=== PATIENT | male | born 1940 | race Caucasian/White ===

== ENCOUNTER 2024-07-13 10:16 | Outpatient (CLI) | payer MEDICARE, SELFPAY ==
--- NOTE | ~2024-07-13 | XR_ITS ---
EXAMINATION: XR chest 2V DATE: 07/13/2024 10:41 INDICATION: Fever TECHNIQUE: PA and lateral views of the chest were obtained. COMPARISON: None FINDINGS: The lungs are clear with no focal airspace opacities, pulmonary edema, pleural effusion or pneumothor ax. The cardiomediastinal silhouette is normal. Mild thoracic spondylosis with bridging osteophytes a t multiple levels consistent with diffuse idiopathic skeletal hyperostosis (DISH). IMPRESSION: 1. No acute cardiopulmonary disease. Reviewed, dictated and finalized at location B. CLEANER
[2024-07-13 19:21] LABS: Basophils Absolute Auto 0.1 K/mm3 (0.0-0.1); Eosinophils Absolute Auto 0.3 K/mm3 (0-0.3); Eosinophils Percent Auto 3.5 % (0-4.4); Hematocrit 39.5 % (42.0-52.0); Hemoglobin 12.2 g/dL (14.0-18.0); Immature Granulocyte Absolute 0.02 K/mm3 (0.00-0.031); Immature Granulocyte Percent A 0.2 % (0-0.5); Lymphocytes Absolute Auto 1.38 K/mm3 (0.9-3.2); Lymphocytes Percent Auto 17.1 % (18.3-44.2); Mean Corpuscular HGB Conc 30.9 g/dl (32-36); Mean Corpuscular Volume 93.8 fl (80-100); Mean Platelet Volume 10.6 fl (7.4-10.4); Monocytes Absolute Auto 1.1 K/mm3 (0.1-0.6); Monocytes Percent Auto 13.7 % (2.6-8.5); Neutrophils Absolute Auto 5.2 K/mm3 (1.3-6.7); Neutrophils Percent Auto 64.5 % (45.5-73.1); Platelet Count Result 208 k/mm3 (150-375); Red Blood Count 4.21 M/mm3 (4.6-6.20); Red Cell Distribution Width 15.5 % (11.5-14.5); White Blood Count 8.1 K/mm3 (4.5-10.0)
[2024-07-13 19:28] LABS: Alanine Aminotransferase 13 U/L (6-50); Albumin Level 3.9 g/dL (3.5-5.1); Alkaline Phosphatase 97 U/L (38-126); Anion Gap 5 mmol/L (4-12); Aspartate Amino Transferase 30 U/L (17-59); Bilirubin,Total 0.9 mg/dL (0.2-1.3); Blood Urea Nitrogen 22 mg/dL (9-20); Carbon Dioxide 28 mmol/L (22-30); Chloride 102 mmol/L (98-107); Cholesterol 169 mg/dL (0-200); Estimated Glomerular Filt Rate 32; Glucose 262 mg/dL (65-110); HDL Direct 35 mg/dL; Potassium 4.7 mmol/L (3.4-5.0); Sodium 135 mmol/L (137-145); Triglycerides 150 mg/dL (<150)
[2024-07-13 19:39] LABS: LDL Cholesterol Direct 96 mg/dL
[2024-07-13 19:59] LABS: Prostate Specific Antigen 53.7 ng/mL (< OR = 4.0)
[2024-07-13 20:51] LABS: Creatinine Urine 130.7 mg/dL
[2024-07-13 21:46] LABS: MALB Creatinine Ratio > 872.2 mg/g (0-30); Microalbumin Urine Random > 1140.0 mg/L (0-16.7)
--- OUTSIDE RECORDS SUMMARY | 2024-07-20 02:37 | XMS_ITS | Continuity of Care Document ---
Author Organization [facility] Address [address] [facility] [address] [place] [address] Phone Care Team Providers Care Dredge Pipeman Name Role Phone Harjit BONILLA, Satinder Unavailable [...] Diagnoses Date Provider Providers [facility]ied on [facility], [address], [place], [place], [address], [place] tel:[phone] [facility] No Information 2 Harjit Rajan. [address] [facility] [address], [place], [place], [address], [place]. tel:[phone] [facility] [place] [facility], [address], [place], [place], [address], tel:[phone] [facility] Cataract evaluation (chief complaint) Type 2 diab with mild nonp rtnop with macular edema, l eyeAge-relat ed nuclear cataract, bilateralCor pipe scar, right eyeDrusen (degenerativ e) of macula, right eye 2 Harjit Rajan. [address] [facility], [facility] [address], [place], [place], [address], [place]. tel:[phone] Specialist: Shira Platt MD, [address] [facility] [address], [place], [address]. tel:[phone] ist: Kaylah Nix MD, [address] [facility], [address], [place], [address]. tel:[phone] ist: Nargis Romero NP, [address] [facility] [address], [place], [address]. tel:[phone] ist: Kaylah Nix MD, [address] [facility] [address], [place], [address]. tel:[phone] Provider: Kenyatta Oneal MD, [address] [facility]. [address], [place], [address]. tel:[phone] ng Provider: MD Agus Michelle, [address] [facility], [place], [address]. tel:[phone] Office/outpa tient Visit, [facility], [address] [facility] [address] [address], [place], [place], [address], [place] tel:[phone] [facility] Professional Diabetic eye exam (chief complaint) Type 2 diab with mild nonp rtnop with macular edema, l eyeType 2 diab with mild nonp rtnop without mclr edema, r eyeCombined forms of age-related cataract, bilateralAna tomical narrow angle May-0 6-202 2 Timothy OD Mary Jo. [address] [facility], [address], [place], [place], [address], [place]. tel:[phone] Specialist: Shira Platt MD, [address] [facility] [address], [place], [address]. tel:[phone] ist: Kaylah Nix MD, [address] [facility] [address], [place], [address]. tel:[phone] ist: Nargis Romero NP, [address] [facility] [address], [place], [address]. tel:[phone] Provider: Kenyatta Oneal MD, [address] [facility]. [address], [place], [address]. tel:[phone] ng Provider: MD Agus Michelle, 1 [facility], [place], [address]. tel:[phone] [facility], [address] [facility] [address], [place], [place], [address], [place] tel:[phone] [facility] No Information 2 Harjit Rajan. [address] [facility], [address], [place], [place], [address], [place]. tel:[phone] Specialist: Shira Platt MD, [address] [facility] [address], [place], [address]. tel:[phone] ist: Kaylah Nix MD, [address] [facility] [address], [place], [address]. tel:[phone] ist: Nargis Romero NP, [address] [facility] [address], [place], [address]. tel:[phone] Family History Family Member Type Diagnosis Age At Onset Problem Family history of Diabetes m catalinajulia Payers Payer name Insurance type Covered democrat ID Authoriza tion(s) [employer] Medicare CI [id number] Social History Type Description Quantity Date Captured [...] Nix treats his diab. Patient goes to [place] for his glasses. Functional Status Date Functional Assessmen t No Information Instructions Date Instruction Additional Infor abi Impression/Plan Impression/Plan Assessments Type Assessment Date No Information Patient Care Teams Name Effective Dates (start - stop) Status Members No Information
--- OUTSIDE RECORDS SUMMARY | 2024-07-20 02:37 | XMS_ITS | Continuity of Care Document ---
Author Organization [facility] Address [address] [place] [address] Phone Care Team Providers Care Tax Services Manager Name Role Phone Se BONILLA Meng Unavailable [...] Diagnoses Date Provider Providers Copied on Encounter [facility], [address], [place], [place], [address] , [place] tel: [phone] [facility] No Information [address] [place], [place], [address], [place]. tel:[phone] [employer], [address], [place], [place], [address] , [place] tel: [phone] [facility] No Information [address], [place], [address], [place]. [phone] [facility] [employer], [address], [place], [place], [address] , [place] tel: [phone] [facility] Rectal bleedingBlood in stoolElevated PSA [address] Se Field. [address] [place] [address], [id number], [place]. tel:[phone] Referring Provider: Emir Saez, [address] [place] [address], [address] . tel:[phone] [facility] [employer], [address], [place], [place], [address] , [place] tel: [phone] [facility] Urinary tract infectionDiabetic NeuropathyPolyneur opathy in diabetes Apr-2 4 Robert Juan. [address], [address], [place], [place], [address]. tel:[phone] Referring Provider: Emir Saez, [place], [address] . tel:[phone] [facility] [employer], [address], [place], [place], [address] , [place] tel:[phone] [facility] Diabetic Neuropathy Apr-0 4 Se Emir. [address] [place] [address] [place], [address], [place]. tel:[phone] [facility], [address], [place], [place], [address] , [place] tel: [phone] [facility] History of fall/At Risk For FallingScreening for unspecified conditionCAD, UnspecifiedDiabeti c NeuropathyOther and unspecified hyperlipidemiaBPHO besity (BMI 30.0-34.9) [address] [place] [address], [id number], [place]. tel:[phone] Referring Provider: Emir Saez [address] [place] [address], [address] . tel:[phone] [facility], Box [facility], [place], [place], [address] , [place] tel: [phone] [facility] rash (chief complaint) CAD-recent cardiac cath/stent s placed (chief complaint) Allergic dermatitisCAD (coronary artery disease)History of heart artery stent 4 Zi Natarajan. [address] [facility], [address], [place], [place], [address], [place]. tel:[phone] Referring Provider: Emir Saez, [address] [place] [address], [address] . tel:[phone] [facility], [address], [place], [place], [address] , [place] tel: [phone] [facility] BPHCAD, Unspecified 4 Berny Stevens. [address] [facility], [address], [place], [place], [address], [place]. tel:[phone] [facility], [address], [place], [place], [address] , [place] tel: [phone] [facility] Polyneuropathy in diabetesDiabetic NeuropathyOther and unspecified hyperlipidemiaChes t painHTN 3 Robert Juan. [address] [facility], [address], [place], [place], [address]. tel:[phone] Referring Provider: Emir Saez [address] [place] [address], [address] . tel:[phone] [facility], [address], [place], [place], [address] , [place] tel: [phone] [facility] Pain in joint/arthralgia pelvic region and thighHypertensionN ausea 3- 3 Zi Natarajan. [address], [address], [place], [place], [address], [place]. [phone] Referring Provider: Emirtamiko Saez, [address] [place], [address] . tel:[phone] [facility], [address], [place], [place], [address] , [place] tel: [phone] [facility] Diabetes with neurological manifestations, type II or unspecified type, not stated as uncontrolledPolyne uropathy in diabetesOther and unspecified hyperlipidemiaUnsp ecified essential hypertensionBENIGN LOCALIZED HYPERPLASIA OF PROSTATE WITHOUT URINARY OBSTRUCTIONAcute right hip painNausea & vomiting 3 Zi Natarajan. [address], [address], [place], [place], [address], [place]. tel:[phone] [facility], [address], [place], [place], [address] , [place] tel: [phone] [facility] No Information [address]. [address] [place] [address], [address], [place]. tel:[phone] [facility], [address], [place], [place], [address] , [place] tel: [phone] [facility] Diabetes with neurological manifestations, type II or unspecified type, uncontrolledPolyne uropathy in diabetesBenign essential hypertensionHYPERL IPIDEMIA NEC/NOSElevated prostate specific antigen (psa)Obesity, unspecified October- 3 Robert Yessica. [address], [address], [place], [place], [address]. tel:[phone] [facility], [address], [place], [place], [address] , [place] tel: [phone] [facility] Benign essential hypertensionBENIGN LOCALIZED HYPERPLASIA OF PROSTATE WITH URINARY OBSTRUCTIONDiabete s with neurological manifestations, type II or unspecified type, uncontrolledElevat ed prostate specific antigen (psa)Other and unspecified hyperlipidemiaPoly neuropathy in diabetes 2 No Information [employer] [facility], [address], [place], [place], [address] , [place] tel: [phone] [facility] Benign essential hypertensionBENIGN LOCALIZED HYPERPLASIA OF PROSTATE WITH URINDiverticulosis of colon (without mention of hemorrDiabetes with neurological manifestations, type IIElevated prostate specific antigen (psa)Other and unspecified hyperlipidemiaNEUR OPATHY IN DIABETES 2 No Information [facility], [address], [place], [place], [address] , [place] tel: [phone] [facility] Unspecified chest painHeadache [address], [address], [place], [place], [address]. tel:[phone] [facility], [address], [place], [place], [address] , [place] tel: [phone] [facility] BENIGN LOCALIZED HYPERPLASIA OF PROSTATE WITH URINARY OBSTRUCTIONDiverti culosis of colon (without mention of hemorrhage)Elevate d prostate specific antigen (psa) 1 No Information [facility], [address], [place], [place], [address] , [place] tel: [phone] [facility] BENIGN LOCALIZED HYPERPLASIA OF PROSTATE WITH URINARY OBSTRUCTIONElevate d prostate specific antigen (psa)Diverticulosi s of colon (without mention of hemorrhage) 1 No Information [facility], [address], [place], [place], [address] , [place] tel: [phone] [facility] BPH W/O URINARY OBS/LUTSELVTD PRSTATE SPCF ANTGNDMII NEURO UNCNTRLDNEUROPATHY IN DIABETES 1 No Information [facility], [address], [place], [place], [address] , [place] tel: [phone] [facility] HYPERLIPIDEMIA NEC/NOSBENIGN HYPERTENSION 1 Conversion Doctor. [address] [facility], [place], [address], [place]. [facility], [address], [place], [place], [address] , tel: [phone] [facility] JOINT PAIN-PELVIS 1 Conversion Doctor. [address] [place], [address], [place]. [facility], [address], [place], [place], [address] , tel: [phone] [facility] DMII WO CMP UNCNTRLD 0 Conversion Doctor. [address] [place], [address], [place]. [facility], [address], [place], [place], [address] , [place] tel: [phone] [facility] SCRN MALIG NEOP-PROSTATERECUR BILAT INGUIN HERNSCREEN MAL NEOP-RECTUMDVRTCLO COLON W/O HMRHGDMII WO CMP NT ST UNCNTR 0 No Information Family History Family Member Type Diagnosis Age At Onset Father Problem (finding) coronary arterioscleros is Father Problem (finding) diabetes melli tus in first degree relative Sister Problem (finding) diabetes melli tus in first degree relative Payers Payer name Insurance type Covered constitution party ID Authoriza tion(s) Vehcon [id number] Social History Type Description Quantity Date Captured [...] had 3 stents placed. He saw his tool and die designer when having extreme fatigue. States he previously was 'just worn out' when going from his living room to kitchen. States he now is 'feeling great . His states 'we have to keep reminding him of things not to do . He will see Dr Vera on 07/19. Functional Status Date Functional Assessmen t No Information Instructions Date Instruction Additional Infor abi Disease process Assessments Type Assessment Date No Information Patient Care Teams Name Effective Dates (start - stop) Status Members No Information
--- OUTSIDE RECORDS SUMMARY | 2024-07-20 02:37 | XMS_ITS | Clinical Summary ---
Author Organization [facility] Address [address] [place] [address] Phone Care Team Providers Care Lace Paper Machine Operator Name Role Phone Maria Esther Padgett MD Primary Care Provider Unavailable Allergies No known active allergies Medications lisinopril (PRINIVIL, ZESTRIL) 10 MG Tablet Take 1 Tablet by mouth daily. 30 Tablet 02/10/2023 Active traMADol (ULTRAM) 50 MG TabletIndicatio ns:Right flank pain Take 1 Tablet by mouth every 6 hours as needed for Moderate or more severe pain. 15 Tablet 02/10/2023 Active Social History Tobacco Use Types Packs/Day Years Used Date Smoking Tobacco: Former Cigarettes Passive Smoke Exposure: Never Smokeless Tobacco: Never Alcohol Use Standard Drinks/Week Comments Not Currently 0 (1 standard drink = 0.6 oz pur e alcohol) Sex and Gender Information Value Date Recorded Sex Assigned at Not on file Legal Sex Male 9:49 PM CDT Gender Identity Not on file Sexual Orientation Not on file Last Filed Vital Signs Vital Sign Reading Time Taken Comments Blood Pressure 175/76 02/10/2023 8:00 AM CDT Pulse 65 02/10/2023 8:00 AM CDT Temperature 35.9 ??C (96.7 ??F) 02/10/2023 3:56 AM CD T Respiratory Rate 17 02/10/2023 8:00 AM CDT Oxygen Saturation 97% 02/10/2023 8:00 AM CDT Inhaled Oxygen Concentration - - Weight 81.6 kg (180 lb) 02/10/2023 3:56 AM CDT Height 160 cm (5' 3 ) 02/10/2023 3:56 AM CDT Body Mass Index 31.89 02/10/2023 3:56 AM CDT Plan of Treatment Health Maintenance Due Date Last Done Comments Hepatitis C Virus (HCV) Screening 1940 TdaP Immunization 1940 Pneumococcal Immunization (5 0+ years) (1 of 1 - PCV) 1991 Zoster Immunization (1 of 2) 1991 Respiratory Syncytial Virus (RSV) Immunization (Adult) (1 - 1-dose 75+ series) 01/24/2016 Influenza Immunization (#1) 2024 SARS-COV-2 Immunization ( - season) 2024 Hepatitis B Immunization Aged Out No longer eligible based on patient's age to complete this topic Meningococcal Immunization (ACWY) Aged Out No longer eligible based on patient's age to complete this topic Rotavirus Immunization Aged Out No lo nger eligible based on patient's age to complete this topic Insurance MEDICARE [facility] Care Teams Lace Paper Machine Operator Relationship Specialty Start Date End Date Maria Esther Padgett MD PCP - General Family Medicine 02/10/23
--- OUTSIDE RECORDS SUMMARY | 2024-07-20 02:37 | XMS_ITS | Clinical Summary ---
Author Organization [facility] Facility Address [address] [place] [address] Care Team Providers Care Pot Holder Binder Name Role Phone Carlitos Shah MD Primary Care Provider [phone] Social History Tobacco Use Types Packs/Day Years Used Date Smoking Tobacco: Former Alcohol Use Standard Drinks/Week Comments No 0 (1 standard drink = 0.6 oz pur e alcohol) Sex and Gender Information Value Date Recorded Sex Assigned at Not on file Legal Sex Male 2:50 PM EDT Gender Identity Not on file Sexual Orientation Not on file Last Filed Vital Signs Vital Sign Reading Time Taken Comments Blood Pressure 122/64 05/18/2019 12:00 PM INSULATION CUTTER AND FORMER Pulse 70 05/18/2019 12:00 PM INSULATION CUTTER AND FORMER Temperature - - Respiratory Rate 18 05/18/2019 12:00 PM INSULATION CUTTER AND FORMER Oxygen Saturation 96% 05/18/2019 12:00 PM INSULATION CUTTER AND FORMER Inhaled Oxygen Concentration - - Weight 91.6 kg (202 lb) 05/18/2019 12:00 PM INSULATION CUTTER AND FORMER Height 160 cm (5' 3 ) 05/18/2019 12:00 PM INSULATION CUTTER AND FORMER Body Mass Index 35.78 05/18/2019 12:00 PM INSULATION CUTTER AND FORMER Plan of Treatment Health Maintenance Due Date Last Done Comments Pneumococcal Vaccine: 65+ Ye ars (1 of 2 - PCV) 1946 Diabetes: Hemoglobin A1C 11/21/2020 Diabetes: Ophthalmology Exam 11/21/2020 Diabetes: Pedal Pulse Checked 11/21/2020 Diabetes: Sensory Foot Exam 11/21/2020 Diabetes: Visual Foot Exam 11/21/2020 Influenza Vaccine (#1) 2024 Hepatitis B Vaccine Aged Out No longe r eligible based on patient's age to complete this topic Insurance [employer] ELIZABETH MCINTOSH ([id number]) UHC MEDICARE Care Teams Pot Holder Binder Relationship Specialty Start Date End Date Carlitos Shah MD [address] [place] [address] PCP - General Family Medicine 11/28/20
--- OUTSIDE RECORDS SUMMARY | 2024-07-20 02:37 | XMS_ITS | CONTINUITY OF CARE DOCUMENT ---
Author Name yann, yann Address Unknown Organization [facility] Address [address] [facility] [address] [place] [address] Phone [phone] Care Team Providers Care Cancellation Clerk Name Role Phone Chuy BONILLA, Jean Pierre Unavailable [phone] KATIA BONILLA MENG Unavailable [phone] NIKO ORR MD Unavailable PROBLEMS Condition Status Date Provider Notes CHEST PAIN-TYPE TO BE DETERMINED completed - Berenice Gay RN DIABETES MELLITUS active Berenice Gay R N CAD active Berenice Gay RN HTN ESSENTIAL active Berenice Gay RN HYPERLIPIDEMIA active Berenice Gay RN ENCOUNTERS Date Type Provider Location Encounter Diag nosis - In-person encounter Office Visit Jean Pierre Vera MD [facility] HYPERLIPIDEMIACHEST PAIN-TYPE TO BE DETERMINED - In-person encounter Office Visit Laina Merchant MD [facility] - In-person encounter Office Visit Jean Pierre Vera MD [facility] - In-person encounter Office Visit Jean Pierre Vera MD [facility] Office HYPERLIPIDEMIAHTN ESSENTIALCADDIABETES MELLITUS VITAL SIGNS Date Observation Value Provider Body Mass Index (Ratio) 35.42 kg/m2 Rosa Gay RN blood pressure, diastolic 70 mm[Hg] Kr isty Chandler blood pressure, systolic 132 mm[Hg] Kri sty Chandler blood pressure, resting No Buster ty [place] blood pressure, cuff size regular Kr isty [place] pulse rate 77 /min Jocelyn Arteaga respiratory rate E&M 17 /min Jocelyn Arteaga oxygen saturation, oximetry 98 % Jocelyn Arteaga weight E&M 200 [lb_av] Jocelyn Arteaga height E&M 63 [in_i] Jocelyn Arteaga Body Mass Index (Ratio) 35.91 kg/m2 Ashl rosaura Zavala blood pressure, diastolic 72 mm[Hg] As hlee Lucas blood pressure, systolic 150 mm[Hg] Hermann Zavala pulse rate 64 /min Angelica Zavala oxygen saturation, oximetry 96 % Angelica Zavala respiratory rate E&M 16 /min Angelica Zavala weight E&M 202 [lb_av] Angelica Zavala Body Mass Index (Ratio) 35.73 kg/m2 Shari nydia Villagomez blood pressure, diastolic, left arm 91 mm [Hg] Madison Villagomez blood pressure, systolic, left arm 159 mm [Hg] Madison Villagomez blood pressure, diastolic, right arm 82 m m[Hg] Madison Castillooney blood pressure, systolic, right arm 165 m m[Hg] Madiosn Villagomez blood pressure, diastolic 82 mm[Hg] Na willy Villagomez blood pressure, systolic 165 mm[Hg] Marina sriram Villagomez pulse rate 60 /min Madison Castillooney oxygen saturation, oximetry 97 % Madison Villagomez respiratory rate E&M 17 /min Madison Villagomez weight E&M 201 [lb_av] Madison Villagomez Body Mass Index (Ratio) 35.73 kg/m2 Rukhsana ca Fatimah blood pressure, diastolic 80 mm[Hg] Ta renay Fatimah blood pressure, systolic 130 mm[Hg] [place] ica Fatimah pulse rate 64 /min Ivon Sheridan oxygen saturation, oximetry 97 % Ivon Sheridan respiratory rate E&M 17 /min Ivon Sheridan weight E&M 201 [lb_av] Ivon Sheridan height E&M 63 [in_i] Ivon Sheridan ALLERGIES Allergy Name Onset Date Reaction Criticality Status PLAVIX causes pt to have diarrhea Low Criti cality active RESULTS Date Observation Value Provider Reference Range Interpretation Location platelet count 222 10*3/mm3 Joshua Mulligan hematocrit, blood 43.1 % Joshua Mulligan thyroid stimulating hormone, serum 1.51 u[IU]/mL Joshua Mulligan alanine aminotransferase (SGPT), serum 15 1/L Joshua Mulligan aspartate aminotransferase (SGOT), serum 15 1/L Joshua Mulligan creatinine, serum 1.21 mg/dL Joshua Mulligan potassium, serum 4.6 mmol/L Joshua Mulligan sodium, serum 138 mmol/L Joshua Mulligan HISTORY OF MEDICATION USE Medication Status Instructions Dates Provider Indications Com ments GABAPENTIN 300 MG ORAL CAPSULE active TAKE ONE TABLET BY MOUTH TWICE DAILY 8 Jocelyn Arteaga TRAMADOL HCL 50 MG ORAL TABLET active TAKE ONE TABLET BY MOUTH NEEDED 8 Jocelyn Arteaga RANITIDINE HCL 150 MG ORAL CAPSULE active take one tablet by mouth once daily 8 Jocelyn Arteaga PRIMIDONE 50 MG ORAL TABLET active take one tablet by mouth once daily 8 Jocelyn Arteaga GLIMEPIRIDE 2 MG ORAL TABLET active take one tablet by mouth once daily 8 Jocelyn Arteaga METFORMIN HCL 1500 MG ORAL TABLET (METFORMIN HCL) active take one tablet by mouth once daily 8 Jocelyn Arteaga ISOSORBIDE DINITRATE 30 MG ORAL TABLET completed 1 daily - 8 Jocelyn Arteaga PROTONIX 40 MG ORAL TABLET DELAYED RELEASE active 1 daily Berenice Gay RN EFFIENT 10 MG ORAL TABLET completed One tablet daily 9 - 8 Berenice Gay RN SIMVASTATIN 20 MG ORAL TABLET active 1 tablet in PM Breenice Gay RN LISINOPRIL 20 MG ORAL TABLET active 1 tbalet daily Berenice Gay RN ROBERTO ASPIRIN TABLET active Cande Vasquez FORTAMET 1000 MG ORAL TABLET EXTENDED RELEASE 24 HOUR active 1 tablet in AM and 1/2 tablet in pm Berenice Gay RN SOCIAL HISTORY Date Observation Value Provider physical exercise, frequency, days per week yes Jocelyn Arteaga alcohol use, average drinks per day none Jocelyn Arteaga smoking status Former smoker Jocelyn Arteaga social history reviewed E&M reviewed Laina Merchant MD social history reviewed E&M reviewed Jean Pierre Vera MD smoking history, tot al pack/year 30 Madison Castillooney social history E&M Marital Statu s: L [place] with family/friends J ob Status: Retired E thnicity: Berenice Gay RN physical exercise, frequency, days per week yes Berenice Gay RN alcohol use, average drinks per day none Berenice Gay RN social history reviewed E&M reviewed Berenice Gay RN smoking, year quit 1987 Ivon frazier smoking status former smoker Ivon chi FUNCTIONAL STATUS Date Observation Value Provider HRA, CV Assess/Plan, Angina (inactive) Management Plan continue current therapy Berenice Gay RN MENTAL STATUS Date Observation Value Provider assessment of judgme nt and insight E&M Alert and oriented to time, place and person. Mood and affect are normal. Laina Merchant MD assessment of judgme nt and insight E&M Alert and oriented to time, place and person. Mood and affect are normal. Jean Pierre Vera MD assessment of judgme nt and insight E&M Alert and oriented to time, place and person. Mood and affect are normal. Berenice Gay RN INSURANCE PROVIDERS Payer name Policy type / Coverage type [place] red libertarian ID [employer] Other [id number] ADVANCE DIRECTIVES Name Date DISCUSSED - NO DECISION MADE TREATMENT PLAN Date Name Performer Cardiology:martha Gay RN Cardiology:wc H is updated medication list for this problem includes: Roberto Aspirin Tabs (Aspirin tabs) Lisinopril 20 Mg Tabs (Lisinopril) ..... 1 tbalet daily BP today: 132/70 Prior BP: 150/72 (11/10/2013) Labs Reviewed: C reat: 1.21 (05/11/2013) Berenice Gay RN Cardiology:no angina Berenice pollard RN f/u: H is updated medication list for this problem includes: Roberto Aspirin Tabs (Aspirin tabs) Lisinopril 20 Mg Tabs (Lisinopril) ..... 1 tbalet daily Simvastatin 20 Mg Tabs (Simvastatin) ..... 1 tablet in pm Effient 10 Mg Tabs (Prasugrel hcl) ..... One tablet daily Isosorbide Dinitrate 30 Mg Tabs (Isosorbide dinitrate) ..... 1 daily BP today: 150/72 Prior BP: 165/82 (07/19/2013) N uclear Stress Findings: Small equivocal reversible defect anteroseptal region. Fixed defect inferior-inferolateral myocardium, which may be due to diaphragmatic defect. Normal SPECT MUGA, with no wall motion abnormality identified. Normal LVEF 58%. - [facility] (08/26/2000) C ardiac Cath: Single-vessel coronary artery disease involving multiple areas of lesion in the right coronary artery. The ostium and the mid segment of the right coronary artery were stented with drug-eluting stents, and the PDA was stented with a drug-eluting stent. There were no complications. Mild plaquing in the left system. Normal left ventricular function. No mitral regurgitation. Mildly elevated LVEDP of 20 mmHg, probably because of diastolic dysfunction. - (06/22/2013) C ardiac Cath Comments: Successful 3.0 x 12mm Promus Element drug-eluting stenting of the ostium and the 3.0 x12mm Xience stenting of the mid segment of the RCA, 2.5 x 8mm Xience drug-eluting stenting of the PDA. - (06/22/2013) C arotid Doppler/Duplex: Mild plaque with less than 50% stenosis of the internal carotid arteries bilaterally. Vertebral flow is antegrade bilaterally. - CNE (07/19/2013) H CT: 43.1 (05/11/2013) Platelets: 222 (05/11/2013) C reat: 1.21 (05/11/2013) Na+: 138 (05/11/2013) K+: 4.6 (05/11/2013) TSH: 1.51 (05/11/2013) Laina Merchant MD :CHOLESTEROL 132 mg/ dL T RIGLYCERIDES 95 mg/dL H DL CHOLESTEROL [L] 40 mg/dL L DL (CALCULATED) 73 mg/dL His updated medication list for this problem includes: Simvastatin 20 Mg Tabs (Simvastatin) ..... 1 tablet in pm BP today: 165/82 Prior BP: 130/80 (06/08/2013) Jean Pierre Vera MD :usually well contro lled at home His updated medication list for this problem includes: Roberto Aspirin Tabs (Aspirin tabs) Lisinopril 20 Mg Tabs (Lisinopril) ..... 1 tbalet daily O rders: E KG ([id number]-[id number]) BP today: 165/82 P rior BP: 130/80 (06/08/2013) Labs Reviewed: C reat: 1.21 (05/11/2013) Jean Pierre Vera MD :s/p pci rca in 3 di fferent areas with indira s ymptoms resolve adn doing well now Jean Pierre Vera MD :needs FLP checked Berenice wood RN :BP today: 130/80 Berenice Gay RN :concerning for timur na w ill cath Berenice Gay RN :history of PTCA to prox RCA 2000 check carotid and abd u/s Berenice Gay RN HISTORY OF PROCEDURES Procedure Date Procedure Name Provider Procedure Notes S imelda SNOMED-CT: [id number] Current Medications Documented Jean Pierre Vera MD completed EKG Jean Pierre Vera MD completed
--- OUTSIDE RECORDS SUMMARY | 2024-07-20 02:38 | XMS_ITS | Clinical Summary ---
Author Organization [facility] Address [address] [place] [address] Care Team Providers Care Distribution Field Engineer Name Role Phone Patrice Rico NP Unavailable [phone] Joselin Mcbride MD Unavailable [phone] Eryn Araya PT Unavailable Unavailabl e Allergies Active Allergy Reactions Criticality Noted Date Comments Clopidogrel Unknown 10/04/2013 diarrhea Hydrochlorothiazide Dizziness Low Reaction: lightheadedness, Iodine Rash Medium 07/07/2013 Medications pen needle, diabetic 32 gauge x 3/16 needle Use one /day for insulin pen 100 each 3 021 Active alcohol swabs pads, medicated Use before injecting insulin or doing finger sticks to clean area, 3 per day DX E11.65, Z79.4 300 each 3 021 Active cholecalciferol (VITAMIN D-3) 2000 unit capsule 1 capsule (2,000 Units total) public health veterinarian before breakfast Active lancets misc Use to test blood glucose 2 times each day DX E11.65, Z79.4 200 each 3 022 Active acetaminophen (TYLENOL) 325 mg tablet Take 2 tablets (650 mg total) by mouth every 6 (six) hours as needed for pain Active pantoprazole DR (PROTONIX) 40 mg EC tabletIndications:G astrointestinal hemorrhage, unspecified gastrointestinal hemorrhage type Take 1 tablet (40 mg total) by mouth 2 (two) times a day 30 tablet 5 Active furosemide (LASIX) 20 mg tablet Take 1 tablet (20 mg total) by mouth public health veterinarian before breakfast 30 tablet 11 024 2024 Active ticagrelor (BRILINTA) 90 mg tablet Take 1 tablet (90 mg total) by mouth 2 (two) times a day 180 tablet 3 024 2024 Active aspirin 81 mg enteric coated tablet Take 1 tablet (81 mg total) by mouth daily 30 tablet Active atorvastatin (LIPITOR) 40 mg tabletIndications:H yperlipidemia associated with type 2 diabetes mellitus (HCC) Take 1 tablet (40 mg total) by mouth daily 90 tablet 3 024 2024 Active isosorbide mononitrate ER (IMDUR) 30 mg 24 hr tablet Take 1 tablet (30 mg total) by mouth daily 90 tablet 3 024 2024 Active metoprolol tartrate (LOPRESSOR) 25 mg immediate release tablet Take 0.5 tablets (12.5 mg total) by mouth 2 (two) times a day 90 tablet 3 024 2024 Active ferrous sulfate 325 mg (65 mg of elemental iron) tabletIndications:G astrointestinal hemorrhage, unspecified gastrointestinal hemorrhage type TAKE 1 TABLET BY MOUTH EVERY OTHER DAY 45 tablet 1 Active blood-glucose meter kitIndications:Type 2 diabetes mellitus with other circulatory complication, with long-term current use of insulin ([facility]) Use to test blood glucose 2 times each day DX E11.65, Z79.4 1 kit Active blood glucose diagnostic ([employer]Touch Verio test strips) stripIndications:Ty pe 2 diabetes mellitus with other circulatory complication, with long-term current use of insulin ([facility]),Type 2 diabetes mellitus with hyperglycemia, with long-term current use of insulin ([facility]) USE TO TEST BLOOD SUGAR TWICE DAILY DIRECTED BY PHYSICIAN 200 each 3 Active lancets (OneTouch Delica Plus Lancet) 33 gauge miscIndications:Typ e 2 diabetes mellitus with hyperglycemia, with long-term current use of insulin (HCC),Type 2 diabetes mellitus with hyperglycemia, unspecified whether prison insulin use (HCC) USE TO TEST BLOOD SUGAR TWICE DAILY DIRECTED BY PHYSICIAN 100 each 3 Active glimepiride (AMARYL) 2 mg tabletIndications:T ype 2 diabetes mellitus with hyperglycemia, with long-term current use of insulin (HCC) TAKE ONE (1) TABLET BY MOUTH TWICE DAILY AT LUNCH AND DINNER 120 tablet 2 Active blood glucose diagnostic (glucose blood) strip Use to test blood glucose 2 times each day DX E11.65, Z79.4 200 each 3 022 2023 Discontinued glimepiride (AMARYL) 2 mg tabletIndications:t ype 2 diabetes mellitus TAKE 1 TABLET (2 MG TOTAL) BY MOUTH 2 (TWO) TIMES A DAY WITH LUNCH AND BEDTIME 180 tablet 024 2023 Discontinued Active Problems Problem Noted Date Diagnosed Date Coronary artery disease invo lving w[place] coronary artery of [place] heart 03/14/2024 Class 1 obesity due to exces s calories with serious comorbidity and body mass index (BMI) of 30.0 to 30.9 in adult 03/13/2024 Overview (10/31/2023): Weight loss, BMI around 30 as of 2023. Assessment & Plan (03/14/2024 5:55 AM CDT): Chronic, weight fluctuates somewhat, obesity present for more than 5 years. Currently he is on a possible trend down. We encouraged attention to his diet. Follow-up in one month. Assessment & Plan (09/08/2019 9:32 AM CDT): Healthy, low carbohydrate lifestyle and exercise for 150min/week recommended Absent pedal pulses 03/13/2024 Assessment & Plan (03/13/2024 12:08 PM CDT): New finding, uncertain significance. We ordered ABIs to determine if additional evaluation and treatment is needed. Clinically there is mildly decreased temperature in the right foot compared to the left, but no severe ischemic changes such as ulceration, gangrene or color change. CKD (chronic kidney disease) stage 4, GFR 15-29 ml/min ([facility]) 03/08/2024 Overview (03/12/2024): Progressed to stage 4 as of March 17, 2024. Assessment & Plan (03/14/2024 5:54 AM CDT): New finding in terms of stage, but chronic kidney disease has bee present for more than 5 years and relatively stable until now. We will need to monitor this situation very closely. Referral to Nephrology may be needed. We will see him back in a month with follow-up labs. Lab Results Component Value Date GLUCOSE 177 03/06/2024 CALCIUM 8.7 03/06/2024 SODIUM 138 03/06/2024 POTASSIUM 4.3 03/06/2024 CO2 22 03/06/2024 CHLORIDE 104 03/06/2024 BUNSER 28 (H) 03/06/2024 CREATININE 2.27 (H) 03/06/2024 Assessment & Plan (02/22/2024 10:30 AM CDT): Chronic, present for about two years or more, at significant risk for worsening due to recent contrast study for his cardiac catheterization and RCA stent. Apparently additional stents are planned, so there is additional anticipated risk to his kidneys in the future. We will need to monitor this condition closely. We ordered labs to be done before his next visit in three weeks. Lab Results Component Value Date GLUCOSE 161 02/17/2024 CALCIUM 8.2 (L) 02/17/2024 SODIUM 138 02/17/2024 POTASSIUM 3.4 02/17/2024 CO2 21 (L) 02/17/2024 CHLORIDE 105 02/17/2024 BUNSER 35 (H) 02/17/2024 CREATININE 2.01 (H) 02/17/2024 Assessment & Plan (11/02/2023 8:42 AM CDT): He has moderate chronic kidney disease. It is probably due to a combination of aging, diabetes and hypertension. We ordered a follow-up BMP to see if there is progression. Consider referral to Nephrology if not previously evaluated by them. Assessment & Plan (02/02/2022 1:23 PM CDT): Stable - continue BP medication - continue monitoring. Chest pain 02/15/2024 Angina pectoris 02/13/2024 Abnormality of gait due to impairment of balance 02/03/2024 Assessment & Plan (02/03/2024 5:14 PM CDT): New problem, unresolved. After his recent hospitalization for acute blood loss anemia from the GI tract, he had an unsteady gait. He has been using a cane. Exam shows mild unsteadiness and a slightly hunched posture with no ataxia. He gets on and off the exam table without assistance. He is probably somewhat deconditioned and may have complications related to diabetes. We advised physical and occupational evaluation and treatment for now. Further workup may be needed depending on response to therapy. Erosive esophagitis 01/27/2024 Assessment & Plan (02/03/2024 5:18 PM CDT): New problem, currently on Protonix 40 mg twice daily prescribed even before his recent hospitalization. Compliance might be an issue here. Continue current therapy and follow-up in one month. Adenomatous polyp of colon 01/27/2024 Assessment & Plan (02/12/2024 6:20 PM CDT): New finding, controlled. He presented to the hospital with bright red blood in his stool. He was significantly anemic. He was hospitalized and had upper and lower endoscopies. Multiple adenomatous polyps were resected from the colon. He had moderate reflux esophagitis with a linear ulcer but no stigmata of recent bleeding from the upper GI tract. Hemoglobin at the time of discharge remained rather low but adequate and stable over two days. He was placed on Protonix. We ordered a follow-up to be done today or tomorrow. Return in one month or sooner for additional testing as needed. Hematochezia 01/26/2024 Pelvic mass 08/16/2023 Overview (10/31/2023): MRI: Indeterminate round nodule in the right mesorectal fat measuring 1.6 x 1.5 cm, incompletely evaluated in the absence of intravenous contrast. Differential for this finding includes a focus of lymphadenopathy, cyst, or possible neurogenic tumor. No additional suspicious nodules in the pelvis. Assessment & Plan (11/02/2023 8:41 AM CDT): New problem, uncontrolled. During his recent hospital stay for GI bleeding, an indeterminate pelvic mass was noted. The differential diagnosis on imaging included lymphadenopathy and neurogenic tumor. Follow-up imaging at an appropriate interval appears to be appropriate. We will discuss with Radiology and make arrangements. Moderate aortic stenosis 08/16/2023 Overview (10/31/2023): Calcific, see echo report. Impaired diastolic relaxation Grade I. Ejection fraction is measured at 61 %. Assessment & Plan (11/02/2023 8:32 AM CDT): New problem, uncontrolled. He has moderate calcific aortic stenosis on echocardiogram during his July hospital admission. Aortic cusps appeared moderately calcified. Moderate aortic stenosis was reported with a peak velocity AOV of 2.7 m/sec, mean gradient of 19.0 mmHg, and calculated valve area of 1.07 cm2. Impaired diastolic relaxation was also reported which may account for some of the swelling in his legs. Previous echo several years ago was negative for aortic stenosis. Lungs are clear and oxygen saturation is normal, so I do not think he is in overt heart failure at this time, although he may benefit from a diuretic as discussed elsewhere. We will see him back in two weeks as scheduled. Acute bronchitis 08/15/2023 Anatomical narrow angle of eye 08/15/2023 Gastrointestinal hemorrhage 08/15/2023 Overview (10/31/2023): Office follow-up by CULLEN Arriaga. >>OVERVIEW FOR ANEMIA, BLOOD LOSS WRITTEN ON 10/31/2023 2:56 PM BY MARIA NEGRETE MD Hospitalized for acute GI bleed. Assessment & Plan (02/12/2024 6:26 PM CDT): Acute problem, presumed source is the lower GI, possibly hemorrhoidal or diverticular, but he also had colon polyps that were resected. Upper endoscopy showed esophagitis and a linear ulcer without bleeding. We ordered some follow-up testing to see if his hemoglobin is improving on iron therapy. Assessment & Plan (11/02/2023 8:22 AM CDT): Subacute problem, uncontrolled. He was hospitalized about three months ago with acute GI blood loss. A small esophageal ulcer was noted on EGD. He was discharged on iron but says he never took it. He was not aware of the prescription. He also appears not to be taking the PPI that was prescibed. 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 We ordered a follow-up CBC and BMP. Lab Results Component Value Date WBC 10.0 (H) 08/18/2023 HGB 8.5 (L) 08/18/2023 HCT 28.4 (L) 08/18/2023 MCV 85.5 08/18/2023 LABPLAT 252 08/18/2023 Assessment & Plan (08/29/2023 6:18 PM 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): See recent hospital details for GI bleed as outlined in HPI. No further symptoms. Labs stable upon discharge. Will refer to GI for likely need of EGD and monitoring. Continue pantoprazole as rxd. Discussed low acid diet: avoid soda, sugar substitutes, vinegar, pickles, citrus, tomatoes, coffee, and alcohol. Stay hydrated. Keep follow and repeat labs in 6 weeks. Anemia 08/12/2023 Assessment & Plan (02/03/2024 5:20 PM CDT): New problem, controlled but still moderately anemic. He is taking an iron supplement. We ordered follow-up lab testing. He has a follow-up with GI. Return here in one month. Lab Results Component Value Date WBC 9.1 01/28/2024 HGB 8.2 (L) 01/28/2024 HCT 25.1 (L) 01/28/2024 MCV 89.0 01/28/2024 LABPLAT 176 01/28/2024 Need for hepatitis C screening test 10/21/2021 Bilateral carotid artery stenosis 07/21/2019 Assessment & Plan (11/14/2020 9:37 AM CDT): Patient remains asymptomatic with his carotid artery disease. I plan to re- evaluate his afva-aa-qvrlycfz disease with carotid ultrasound. Coronary artery disease invo lving [place] heart without angina pectoris 06/05/2019 Overview (10/31/2023): >>OVERVIEW FOR S/P RIGHT CORONARY ARTERY (RCA) STENT PLACEMENT WRITTEN ON 10/31/2023 2:55 PM BY MARIA NEGRETE MD Mid and distal right coronary artery with deployment of overlapping 2.75 and 3.0 mm JASMIN. >>OVERVIEW FOR NSTEMI (NON-ST ELEVATED MYOCARDIAL INFARCTION) (CMS/HCC) (HCC) WRITTEN ON 10/31/2023 2:59 PM BY MARIA NEGRETE MD Stent in RCA, details lacking. Assessment & Plan (03/14/2024 5:57 AM CDT): Chronic, controlled with medications including aspirin 81 mg daily and ticagrelor 90 mg twice daily which unfortunately put him at risk for anemia and other possible drug side-effects, so this is an unstable situation requiring close follow up. He also takes atorvastatin 40 mg daily, metoprolol 12.5 mg twice daily, and isosorbide 30 mg daily. He denies chest pain or pressure. Continue same for now pending results of follow-up labs before his next visit in one month. Lab Results Component Value Date WBC 8.0 03/06/2024 HGB 8.1 (L) 03/06/2024 HCT 27.1 (L) 03/06/2024 MCV 96.4 03/06/2024 LABPLAT 295 03/06/2024 Assessment & Plan (02/22/2024 10:21 AM CDT): Chronic, present for about five years with recent exacerbation requiring hospitalization and intervention. He is on aspirin and ticagrelor as well as isosorbide, atorvastatin, and metoprolol. Continue same. He denies ongoing chest pain. He will keep his follow ups with cardiology. Return here in three weeks as previously scheduled. Assessment & Plan (11/02/2023 8:19 AM CDT): Chronic, stable. He was in urgent care three days ago complaining of chest pain described as achy and worse with movement. They did an EKG which showed nonspecific changes. They gave him a Medrol Dosepak, and he says the pain is much better. He does have known ischemic heart disease, but the recent pain is probably not due to his heart. We will see him back in two weeks as scheduled. Assessment & Plan (01/20/2022 5:48 PM CDT): Chronic. With stents in place and mild murmur heard on PE. 2/6 systolic murmur. Last Cards f/u 2 years ago. Will refer to Cards to establish care given history Assessment & Plan (10/21/2021 5:17 PM CDT): Chronic. With stents in place and mild murmur heard on PE. 2/6 systolic murmur. Last Cards f/u 2 years ago. Will refer to Cards to establish care given history Assessment & Plan (11/14/2020 9:38 AM CDT): Patient remains free of any symptoms to suggest angina or heart failure. He will continue with aggressive secondary risk factor modification. At this point the patient no longer needs dual anti-platelet therapy. Assessment & Plan (01/10/2020 4:19 PM CDT): Managed by Dr. Salmeron Noncompliance 10/19/2018 Assessment & Plan (10/17/2020 11:06 AM CDT): Has not followed up with Cardiology or Nephrology but states that he will. Open wound of leg, right, sequela 09/21/2018 Assessment & Plan (09/28/2018 10:46 AM CDT): Repeat cmp. Refer to wound clinic. Orders for silvadene with instruction given on how to change dressing twice daily. Chronic dermatitis 09/05/2018 Assessment & Plan (11/16/2018 8:05 PM CDT): I asked Zahra Shah to come in and assess pt as well. Discussed options. He does improve with prednisone. Will restart prednisone at 40mg and taper by 10mg every week down to 10mg . We had referred him to dermatology and he had a pending appt in November, however, they called today and cancelled it stating they do not take his insurance. We changed referral to Dr. Rabago. We were able to call their office and get an appointment for this Wednesday. Will have him f/u with Dr. Shah for chronic conditions as well Assessment & Plan (10/28/2018 1:12 PM CDT): Uses silvadene not just on ankle, but on several small lesions on hands and arms from ongoing rash, which helps. Assessment & Plan (09/13/2018 3:18 PM CDT): Improving with eucrisa and change to fragrance and dye free detergents. Pt and shared with me that they use community pay washer/ dryers that are in their apartment building. The washer didn't work correctly and the company is sending their money back to them (55cents). I'm concerned that using a community washer and dryer may be part of the problem as they may be picking up soap residue or the washer is not rinsing correctly. Also, they stated that [facility] Paid for the eucrisa but sent them a letter stating that they would not pay for it again. I'm hoping to get him in to see dermatology and referral has already been placed. Assessment & Plan (09/05/2018 12:55 PM CDT): Punch biopsy done. Will send in eucrisa. May not be affordable for patient. Refer to dermatology- Dr. Perez. Dementia without behavioral disturbance 02/10/20 18 Overview (10/31/2023): Per PERIANESTHESIA RN office note. Assessment & Plan (02/22/2024 10:27 AM CDT): Chronic, first diagnosed about five years ago, but seems pretty functional as grossly assessed in the office today. He does have a little trouble remembering details about his complicated medical regimen. He does not take any medicine for dementia or memory loss, and it remains somewhat unclear to me how this diagnosis was established. There was only one prior note from 2018 referring to this condition and stating the patient was referred to Neurology for further evaluation. However, there is no note on file from Neurology, nor do I find any psychological testing. We will consider additional evaluation as needed when we see him back in three weeks. Assessment & Plan (02/09/2018 10:53 AM CDT): Psychological condition is newly identified. referral to neurology for further evaluation Psychological condition will be reassessed at the next regular appointment. Appears to have started after some kind of incident where he had fallen or had difficulty getting out of bed per in 12/2016, and was confused at home in 12/2016 and then was admitted to hospital for weakness. I do not see a CT head done since 2014 which did show changes at that time. Will refer to neurology for further workup. Tremor 11/25/2017 Assessment & Plan (01/20/2022 5:52 PM CDT): Chronic. Likely essential tremor. Records state tremor was originally treated with Primidone in the past. Patient doesn't recall medication. Will restart and refer to Neurology for additional eval/treament. Assessment & Plan (11/26/2017 4:42 PM CDT): Pt states he has tremor that he was originally given primidone for. Tremor is worsening and not always controlled. Will refer to neurology. Pulmonary nodule 11/25/2017 Assessment & Plan (11/26/2017 4:45 PM CDT): He had a CT scan 05/2017 that showed a left lung pulmonary nodule. 6-12 month follow up was recommended if he was at high risk. He does have a smoking history. He is also complaining of ongoing pain in his left lower rib area. Will repeat CT chest WO contract. Other chest pain 11/18/2017 Assessment & Plan (11/18/2017 10:15 AM CDT): Chest pain on left side when sitting radiates from mid chest under breast and around. Hx of stent placement in 2012. 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 He [address] Dr[address] Vera at that time. EKG in office. He also mentioned hx of left rib fracture about a year ago. EKG shows NSR, flat T in AVL. Will refer back to cardiology Diverticulosis of sigmoid colon 07/22/2015 Overview (10/02/2016): Diverticulosis of sigmoid Elevated prostate specific antigen (PSA) 014 Overview (10/02/2016): Elevated PSA Assessment & Plan (03/14/2024 6:02 AM CDT): Chronic, present for more than 10 years, uncontrolled with progression over time. Prostate cancer is suspected based on PSA level and recent imaging findings. We referred him to Medical and Radiation Oncology and Urology. He denies trouble urinating but does have frequency from his diuretic use, furosemide 20 mg daily. Lab Results Component Value Date PSA 59.90 (H) 11/01/2023 PSA 31.46 (H) 10/17/2020 PSA 17.82 (H) 09/27/2018 CT 01/26/2024: Nodule in the right pelvis measures 19 x 16 mm, slightly enlarged from 15 x 14 mm on the prior (CT). PET-CT correlation could be considered. Assessment & Plan (02/22/2024 10:28 AM CDT): Chronic, uncontrolled, first noted more than five years ago. We suspect prostate cancer but he never went to see the urologist. He is now on blood thinners for a recent cardiac intervention so any biopsy will have to be delayed, but we could probably get some imaging if appropriate. He denies trouble urinating or blood in the urine. We encouraged him to follow-up with Urology for this condition. Return in three weeks as scheduled. Lab Results Component Value Date PSA 59.90 (H) 11/01/2023 PSA 31.46 (H) 10/17/2020 PSA 17.82 (H) 09/27/2018 Assessment & Plan (02/03/2024 5:17 PM CDT): Chronic, suspect prostate cancer. We reminded the patient that he should follow- up with urology. His former urologist left town so we will arrange for consultation with current providers at [facility]. Assessment & Plan (10/10/2018 3:21 PM CDT): Discussed patient's elevated PSA. Patient states he was scared of possible cancer and did not want to go see a urologist in the past. He states he ran instead of seeing the doctor. I talked him about the need to have this checked out for diagnosis. Patient states he is agreeable to see Urology. Referral had already been placed. Call placed to Urology and they will call him to schedule appointment Assessment & Plan (09/28/2018 10:47 AM CDT): Increased PSA last year. It appears his previous MD tried to refer him to urology in 2017 and he never went. I tried to refer him to urology in 09/2017 and referral never occurred. We will recheck his PSA Hyperlipidemia associated with type 2 diabetes gina leiva 03/29/2014 Overview (10/02/2016): Hyperlipidemia Assessment & Plan (03/14/2024 6:02 AM CDT): Chronic, present for more than five years, controlled on atorvastatin 40 mg daily except for HDL which is below the target of >40. We encouraged him to stay active which may help bring up the HDL. We will monitor lipids periodically. Lab Results Component Value Date CHOL 121 10/28/2021 CHOL 105 10/17/2020 CHOL 107 12/25/2019 Lab Results Component Value Date HDL 32 (L) 10/28/2021 HDL 31 (L) 10/17/2020 HDL 32 (L) 12/25/2019 Lab Results Component Value Date LDLCALC 63 10/28/2021 LDLCALC 47 10/17/2020 LDLCALC 105 06/04/2019 LDL 57 12/25/2019 LDL 91 05/10/2018 LDL 68 08/04/2016 Lab Results Component Value Date TRIG 132 10/28/2021 TRIG 133 10/17/2020 TRIG 93 12/25/2019 Lab Results Component Value Date ALT 11 02/13/2024 AST 12 02/13/2024 ALKPHOS 77 02/13/2024 BILITOT 0.2 02/13/2024 Assessment & Plan (02/22/2024 10:29 AM CDT): Chronic, present for more than five years, currently controlled on atorvastatin 40 mg daily, except for a low HDL which is not at goal. Continue current therapy, as there is no good pharmacologic methods her raising HDL. We did encourage him to stay active. Lab Results Component Value Date CHOL 121 10/28/2021 CHOL 105 10/17/2020 CHOL 107 12/25/2019 Lab Results Component Value Date HDL 32 (L) 10/28/2021 HDL 31 (L) 10/17/2020 HDL 32 (L) 12/25/2019 Lab Results Component Value Date LDLCALC 63 10/28/2021 LDLCALC 47 10/17/2020 LDLCALC 105 06/04/2019 LDL 57 12/25/2019 LDL 91 05/10/2018 LDL 68 08/04/2016 Lab Results Component Value Date TRIG 132 10/28/2021 TRIG 133 10/17/2020 TRIG 93 12/25/2019 Assessment & Plan (11/02/2023 8:23 AM CDT): Chronic, uncontrolled. Ideally he should be taking a statin medication, but it is not on his current list. We will review the record and address at his annual coming up in about 2 weeks. Assessment & Plan (11/14/2020 9:39 AM CDT): Patient's LDL cholesterol from September was perfect at 47 mg/dL. No changes are required. Assessment & Plan (10/17/2020 11:16 AM CDT): Due for lab work. Given orders for lab work. Continue current medications. Stable. Assessment & Plan (08/16/2018 9:33 AM 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): Lipid abnormalities are improving with treatment. Pharmacotherapy as ordered. Lipids will be reassessed in 6 months. Assessment & Plan (05/16/2018 8:47 PM 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): Lipid abnormalities are improving with treatment. Pharmacotherapy as ordered. Lipids will be reassessed in 6 months. Assessment & Plan (02/09/2018 10:44 AM CDT): Decrease zocor to 10mg. Recheck lipids on 3 months Assessment & Plan (10/22/2017 5:39 PM CDT): Lipid abnormalities are unchanged. Pharmacotherapy as ordered. Lipids will be reassessed in 6 months. 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 Previously blood pressure is were ? too high for physical therapy? , but he is doing better now, so he might be able to re-engage with some rehab. Assessment & Plan (02/21/2024 11:56 AM CDT): Chronic, present for 10 or more years, currently controlled on multiple medications listed elsewhere. Follow-up in three weeks as scheduled. Assessment & Plan (11/02/2023 8:24 AM CDT): Chronic, uncontrolled, not at goal. Systolic blood pressure is mildly elevated in the office today. He takes amlodipine 5 mg daily. We may need to adjust his medications. In particular, he may benefit from a diuretic given the 2+ pitting edema but we are checking a BMP first to better guide therapy. Follow-up in two weeks as scheduled for annual. Assessment & Plan (08/29/2023 6:16 PM 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): BP stable in office today on current therapy. 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 No acute findings on exam. Recent hospital discharge labs unremarkable. Repeat ECHO showed EF 60% with moderate and grade 1 DD. Keep stress test on 09/02/23 and follow with cardiology on 09/24/23. Continue current regimen and low salt diet. Assessment & Plan (10/17/2020 11:05 AM CDT): Uncontrolled in office today. It was better when he was seen by endocrinology on the 30 of September. I added diltiazem 120 mg once daily. Patient is overdue for follow-up with Cardiology and Nephrology. We made sure that he had both phone numbers to call and make follow-up appointments with. He canceled both of those appointments last year due to COVID. Will call patient next week for recheck of hypertension and blood pressure recheck. Has in-person follow-up visit in November for Medicare well check Assessment & Plan (09/30/2020 9:58 AM CDT): CKD with LE edema - patient asked to see his PCP or kidney specialist for evaluation Assessment & Plan (09/13/2018 3:14 PM CDT): Hypertension is worsening. I had added toprol xl at last office visit. Blood pressure is still elevated today. He has appointment with nephrology . Will also refer to cardiology for help in blood pressure management. Assessment & Plan (08/16/2018 9:32 AM 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): Hypertension is worsening. Dietary sodium restriction. Regular aerobic exercise. Medication changes per orders. Blood pressure will be reassessed in 4 weeks Add toprol xl 25mg daily. F/u 1 month for blood pressure check. Repeat cmp in 1 month. Assessment & Plan (05/16/2018 8:47 PM 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): Hypertension is improving with treatment. Continue current medications. Blood pressure will be reassessed 6 months. Assessment & Plan (02/09/2018 10:44 AM CDT): Hypertension is worsening. Medication changes per orders. Blood pressure will be reassessed in 3 months Increase norvasc to 10mg. Due to concomitant use of simvastatin - will decrease simvastatin to 10mg daily. Recheck lipid panel and cmp in 3 months with recheck. Asked pt to check blood pressures at home as well. Assessment & Plan (11/18/2017 10:16 AM CDT): Hypertension is improving with treatment. Continue current medications. Blood pressure will be reassessed in 3 months. Assessment & Plan (10/22/2017 5:39 PM CDT): Hypertension is worsening. Medication changes per orders. Blood pressure will be reassessed in 4 weeks Labs as ordered. Add norvasc 5mg daily Type 2 diabetes mellitus wit h circulatory disorder, with long-term current use of insulin 03/29/2014 Overview (10/03/2016): Diabetes Assessment & Plan (03/14/2024 6:05 AM CDT): Chronic, present for more than 10 years. He is on glimepiride 2 mg daily. He does not check blood sugars regularly at home. We will monitor with labs, HGB A1c ordered today. We asked him to get his diabetic eye exam done soon. Lab Results Component Value Date HGBA1C 8.7 (H) 01/27/2024 HGBA1C 9.8 (H) 08/15/2023 HGBA1C 8.3 02/02/2022 Lab Results Component Value Date MICROALBUR 82.0 11/10/2018 LDLCALC 63 10/28/2021 CREATININE 2.27 (H) 03/06/2024 Assessment & Plan (02/22/2024 10:32 AM CDT): Chronic, present for more than five years, uncontrolled as of HGB A1c done earlier this month. He takes glimepiride 2 mg twice daily. He does not check blood sugars at home even though he has a meter, so treatment is significantly limited by social determinants of health. We will most likely need to modify his regimen when he returns in 3 weeks. Lab Results Component Value Date HGBA1C 8.7 (H) 01/27/2024 Assessment & Plan (11/02/2023 8:46 AM CDT): Chronic, uncontrolled. His only diabetic medication is glimepiride 2 mg twice daily. The dose was increased from once daily at the time of his recent hospital discharge. He was also supposed to take insulin Dettmer 20 units nightly, but says he never got that prescription filled. Review of the record indicates that compliance has been an issue in the past. We will see him back as currently scheduled for his annual in about two weeks with the recommended battery of diabetic labs. Assessment & Plan (08/29/2023 6:16 PM 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): Non-compliant, recent Hb A1c while in hospital was 9.8 they had him on insulin while in hospital. Patient admits large fear of needles and has not taken his levemir since her got discharged. Admits AM sugars at home ar running 160-180s. Never re- started glimepiride after discharge either. No acute symptoms or findings on exam. Will re-start glimepiride at 2mg BID. Discussed low carb diet in detail. Assessment & Plan (02/02/2022 1:22 PM CDT): Diagnosed in . Started insulin November Control :??improved A1c 8.3% on 02/02/22 A1c 9.3% on 09/30/21 A1c 9.4% on 05/06/21 A1c 8.6% on 01/21/21 Kidney: nephropathy - with CKD, ??GFR 42 on 10/28/21 Neuropathy : mild ?? Plan: ?? Patient asked to watch diet and cut down on carbs.??Avoid sweets, especially at night. Continue ??Levemir insulin 28??U Qhs, Continue Glimepiride 4 mg /day Monitor sugars 2 /day with target am sugars??100-160. Send sugar records in one week. Hypoglycemia symptoms and treatment reviewed with patient. Call if having low sugars. Ophthalmology exam on regular basis. Assessment & Plan (01/20/2022 5:55 PM CDT): Dm type 2 with Nephropathy Recent A1C 9. Next A1C - Due now, ordered. BMP ordered.Will refer to Nephrology again. Dilated retinal eye exam - Referred 10/2021. Continue to follow with Endocrinology for management. Next appt 01/2022 Referred for Nutrition counseling Vaccines - PCV current. Reccomend Flu in fall & COVID Assessment & Plan (09/30/2021 1:24 PM CDT): Diagnosed in . Started insulin November Control :??not at target- due to non compliance with diet A1c 9.3% on 09/30/21 A1c 9.4% on 05/06/21 A1c 8.6% on 01/21/21 Kidney: nephropathy - with CKD, ??GFR 40 on 11/01/20 Neuropathy : mild ?? Plan: ?? Patient asked to watch diet and cut down on carbs.??Avoid sweets, especially at night. Continue ??Levemir insulin 28??U Qhs, Continue Glimepiride 4 mg /day Monitor sugars 2 /day with target am sugars??100-140. Send sugar records in one week. Hypoglycemia symptoms and treatment reviewed with patient. Call if having low sugars. Ophthalmology exam on regular basis. Assessment & Plan (05/06/2021 3:08 PM 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): Diagnosed in . Started insulin November Control :??not at target- due to non compliance with diet A1c 9.4% on 05/06/21 A1c 8.6% on 01/21/21 A1c 8.0% on 09/30/20 A1c 8.3% on 03/20/2020 A1c 7.7% on 12/19/2019 Kidney: nephropathy - with CKD, ??GFR 40 on 11/01/20 Neuropathy : mild ?? Plan: ?? Patient asked to watch diet and cut down on carbs.??Avoid sweets, especially at night. Increase ??Levemir insulin 28??U Qhs, Continue Glimepiride 4 mg /day Monitor sugars 2 /day with target am sugars??100-140. Send sugar records in one week. Hypoglycemia symptoms and treatment reviewed with patient. Call if having low sugars. Ophthalmology exam on regular basis. Assessment & Plan (01/21/2021 2:58 PM CDT): Diagnosed in . Started insulin November Control :??not at target- due to non compliance with diet A1c 8.6% on 01/21/21 A1c 8.0% on 09/30/20 A1c 8.3% on 03/20/2020 A1c 7.7% on 12/19/2019 Kidney: nephropathy - with CKD, ??GFR 40 on 11/01/20 Neuropathy : mild ?? Plan: ?? Patient asked to watch diet and cut down on carbs.??Avoid sweets, especially at night. Continue??Levemir insulin 24??U Qhs, Continue Glimepiride 4 mg /day Monitor sugars 2 /day with target am sugars??100-140. Send sugar records in one week. Hypoglycemia symptoms and treatment reviewed with patient. Call if having low sugars. Ophthalmology exam on regular basis. Assessment & Plan (09/30/2020 9:55 AM CDT): Diagnosed in . Started insulin November Control : fasting hypoglycemia A1c 8.0% on 09/30/20 A1c 8.3% on 03/20/2020 A1c 7.7% on 12/19/2019 A1c 10.4% on 02/28/19 A1c 10.8% on 12/08/18 A1c 8.2% on 09/05/18 ?? Kidney: nephropathy - with CKD, GFR 37 on 12/25/19 Neuropathy : mild ?? Plan: ?? Patient asked to watch diet and cut down on carbs. Avoid sweets, especially at night. Decrease Levemir insulin to 24 U Qhs, Continue Glimepiride 4 mg /day Monitor sugars 2 /day with target am sugars 100-140. Send sugar records in one week. Hypoglycemia symptoms and treatment reviewed with patient. Call if having low sugars. Ophthalmology exam on regular basis. Assessment & Plan (03/20/2020 9:04 AM CDT): Diagnosed in . Started insulin November Control : fasting hyperglycemia A1c 8.3% on 03/20/2020 A1c 7.7% on 12/19/2019 A1c 10.4% on 02/28/19 A1c 10.8% on 12/08/18 A1c 8.2% on 09/05/18 A1c 6.8% in A1c 7.2% in January/2018 A1c was 8.1% on 10/25/17 Kidney: nephropathy - with CKD, GFR 37 on 12/25/19 Neuropathy : mild Plan: Patient asked to watch diet and cut down on carbs. Avoid sweets, especially at night. increase Levemir insulin to 22 U Qhs, Continue Glimepiride 4 mg /day Monitor sugars 2 /day with target am sugars 100-140. Send sugar records in one week. Hypoglycemia symptoms and treatment reviewed with patient. Call if having low sugars. Ophthalmology exam on regular basis. Assessment & Plan (12/19/2019 9:29 AM CDT): Diagnosed in 1970s. Started insulin November Control : improved control A1c 7.7% on 12/19/2019 A1c 10.4% on 02/28/19 A1c 10.8% on 12/08/18 A1c 8.2% on 09/05/18 A1c 6.8% in A1c 7.2% in January/2018 A1c was 8.1% on 10/25/17 Kidney: nephropathy - with CKD, GFR 37 on 07/03/18. Neuropathy : mild Plan: Reviewed with patient the proper way of taking insulin. Patient asked to watch diet and cut down on carbs. Continue Levemir insulin to 20 U Qhs, Continue Glimepiride 4 mg /day Monitor sugars 2 /day with target am sugars 90-140. Send sugar records in one week. Hypoglycemia symptoms and treatment reviewed with patient. Call if having low sugars. Ophthalmology exam on regular basis. Assessment & Plan (11/16/2018 7:54 PM CDT): Seeing endocrinology. Will see if we can get him a sooner appointment than December 11 since we are placing him on a month long prednisone taper and his blood sugars have been elevated due to this. Assessment & Plan (10/22/2017 5:38 PM CDT): Diabetes is improving with treatment. Continue current treatment regimen. Dietary recommendations for ADA diet. Regular aerobic exercise. Diabetes will be reassessed in 3 months. hga1c and microalbumin ordered today. Benign prostatic hyperplasia 07/04/2013 Assessment & Plan (10/22/2017 5:37 PM CDT): I see where previous physician had discussed referral to urology, but pt never received referral. Will refer to urology Diabetic polyneuropathy ([facility]) 02/06/2013 Assessment & Plan (11/26/2017 4:40 PM CDT): Hx of polyneuropathy. Will start with referral to neurology. Consider referral to pain management. Increase gabapentin to 300mg TID x 3-7 days, then increase to 300 am, noon and 600mg at bedtime. Diverticulitis Resolved Problems Problem Noted Date Diagnosed Date Resolved Date Unstable angina pectoris ([facility]) 08/15/2023 08/25/2023 Rectal bleeding 08/15/2023 08/25/2023 Chronic kidney disease 02/02/202210/30 Overview (10/31/2023): Stage IIIB. Essential hypertension 10/21/202108/25 Assessment & Plan (01/20/2022 5:48 PM CDT): Chronic and stable. Continue current medication. Will obtain lab and adjust meds prn Assessment & Plan (10/21/2021 5:13 PM CDT): Chronic and elevated. Patient did not take medication this AM. Will RTC in 1 week for repeat BP check Type 2 diabetes mellitus wit h chronic kidney disease, with long-term current use of insulin 10/21/2021 08/25/2023 Assessment & Plan (10/21/2021 5:18 PM CDT): Dm type 2 with (?Nephrolpathy) Recent A1C 7. No Neuropathy on foot exam Next A1C - Due now. Dilated retinal eye exam - due now, referral placed Continue to follow with Endocrinology for management Vaccines - PCV current. Reccomend Flu in fall & COVID Anorectal hemorrhage 10/28/2020 024 Healthcare maintenance 10/17/202012/22 Assessment & Plan (10/17/2020 11:16 AM CDT): Pt has followed up with endocrinology. (Dr. Nix) - A1c last week was 8 Needs: Reschedule with cardiology- Dr. Salmeron - Needs: F/u with nephrology - was seeing Dr. Salomon (hypertension not controlled) Messages sent to ACO, Care Management to help with appointments Discussed needs for f/u and appointments to be made and kept with patient today. Pain in left leg 10/17/2020 08/25/2023 Assessment & Plan (10/17/2020 11:15 AM CDT): Pain in left lower extremity, and anterior calf. Possibly patellar tendon. Since he fell will get x-ray of tib-fib although is unlikely fracture. Will refer to ortho for further evaluation and management Hyperlipidemia associated wi th type 2 diabetes mellitus 07/21/2019 10/17/2020 Assessment & Plan (12/19/2019 9:29 AM CDT): With CAD on Statin - continue follow up with cardiology. Hospital discharge follow-up 06/15/2019 10/31/2023 Overview (10/31/2023): For GI bleed, angina, see office note by CULLEN Arriaga. Assessment & Plan (08/29/2023 6:15 PM 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): See hospital details above, testing and labs reviewed with patient in office today. Med reconciliation completed. Chest pain and GIB resolved s/p discharge, H&H was up to 8.5&28 on discharge. Has stress test and cardiology follow scheduled. Will refer to GI for likely need of EGD as colonoscopy in hospital showed no bleed. Continue pantoprazole as rxd. Discussed low acid diet: avoid soda, sugar substitutes, vinegar, pickles, citrus, tomatoes, coffee, and alcohol. Stay hydrated. Assessment & Plan (06/15/2019 9:05 PM 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): Has home health for a few more days. Is trying to increase activity slowly. Overall doing well. Feeling bloated. Will check labs. Has f/u with cardiology scheduled. Acute renal failure superimp osed on stage 3 chronic kidney disease 06/05/2019 10/31/2023 Overview (10/31/2023): At time of acute WI due to RCA stenosis. Pityriasis rosea 11/03/2018 03/12/2024 Overview (03/12/2024): Office visit, Meg Romero, see progress note. Assessment & Plan (11/03/2018 2:57 PM CDT): Told patient to keep pending appointment with Dermatology as I am concerned rash will return once he is off of the prednisone Cellulitis of right ankle 10/10/2018 Assessment & Plan (10/28/2018 1:12 PM CDT): Improving. Finish doxycyline. Assessment & Plan (10/19/2018 12:02 PM CDT): Increased pain and no improvement and legs. Patient did not keep his wound care appointment. I sent patient to the emergency room for evaluation of cellulitis and rule out osteomyelitis. Assessment & Plan (10/10/2018 3:19 PM CDT): Will start clindamycin for cellulitis of wound/ ankle. Referred back to wound care. Discussed compliance with patient and . Patient states that he was scared and also concerned about payment to the hospital with his ultrasound of his leg and labs which he has now been able to take care of. He states that he is willing to go along with my care plan and he is willing to see wound care now. I called wound care and let them know this and they will call patient and schedule appointment. Medicare annual wellness visit, subsequent 02/09/2018 10/31/2023 Overview (10/31/2023): Dr. Padgett. Assessment & Plan (10/21/2021 5:13 PM CDT): Annual Medicare wellness exam completed today. All questionnaires completed and reviewed with patient. No Concerns. BMI: 34 Dietary and exercise recommendations given Routine screening labs ordered: Lipid, A1C, BMP, Hep C, Micoralbumin Preventative screening ordered:N/A Routine vaccines given:Recommend Zoster and Covid POA in place Referrals placed prn Assessment & Plan (12/22/2020 8:32 PM CDT): Patient Counseling: --Nutrition: Stressed importance of moderation in sodium/caffeine intake, saturated fat and cholesterol, caloric balance, sufficient intake of fresh fruits, vegetables, --Exercise: Stressed the importance of regular exercise. --Injury prevention: Discussed safety belts, throw rugs in house, smoke detectors, --Dental health: Discussed importance of regular tooth brushing, flossing, and dental visits. --Immunizations reviewed and offered Assessment & Plan (12/22/2019 10:26 AM CDT): Patient Counseling: --Nutrition: Stressed importance of moderation in sodium/caffeine intake, saturated fat and cholesterol, caloric balance, sufficient intake of fresh fruits, vegetables, --Exercise: Stressed the importance of regular exercise. --Injury prevention: Discussed safety belts, throw rugs in house, smoke detectors, --Dental health: Discussed importance of regular tooth brushing, flossing, and dental visits. --Immunizations reviewed and offered-recommended he get them at the pharmacy - Assessment & Plan (02/09/2018 10:55 AM CDT): Reviewed chronic illnesses. Reviewed screening exams and labs. Pt is up to date. Reviewed depression screen and cognitive exam. Dementia diagnosed. Recommended walking as exercise. F/u with Dr. nix for diabetes. 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 Atherosclerosis of coronary artery 07/04/2013 07/21/2019 Assessment & Plan (06/15/2019 9:08 PM 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): Will check BNP today. C/o of feeling bloated and more short of breath since coming home. States he already is eating a low salt diet. Has hx of renal disease. BNP was 472, down from over 900. I do not want to put him on a diuretic due to renal disease. I asked him to monitor daily weights and call for a weight gain over 3 pounds/day. Diabetic neuropathy 02/06/2013 10/21/19 18 Encounters Date Type Department Care Team Description 05/24/2024 Telephone [facility] [address] [place] [address] Maria Negrete MD Missed/ NO show for Urology 05/17/2024 3:22 PM 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 - 05/17/2024 11:59 PM 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 Hospital Encounter [facility] [address] [place] [address] Elevated prostate specific antigen (PSA) Discharge Disposition: Discharge to home or self care 05/17/2024 Telephone [facility] [address] [place] [address] Medical [address] [place] [address] Kimberly Peña CLT 05/05/2024 Orders Only [facility] [address] [place] [address] Office [facility] [address] [place] [address] Angel Combs MD Elevated prostate specific antigen (PSA) (Primary Dx) 05/03/2024 Telephone [facility] [address] [place] [phone] Cynthia Velez MA Procedure (PCI) 05/01/2024 Telephone [facility] [address] [place] [address] Maria Negrete MD Gluose Meter 05/01/2024 Telephone [facility] [address] [facility] [address] [place] [address] Angel Combs MD 04/28/2024 Telephone [facility] [address] [place] [address] Maria Negrete MD from Last 3 Months Immunizations Name Administration Dates Next Due Influenza, Unspecified 04/23/2023(Deferr ed: Patient Refused),04/07/2023(Deferred: Patient Refused),08/16/2020(Deferred: Patient Refused),03/28/2020(Deferred: Patient Refused),03/28/2019(Deferred: Patient Refused),05/16/2018(Deferred: Patient Refused),03/28/2018(Deferred: Patient Refused) Pneumococcal Conjugate, Unspecified 02/09/2018(D eferred: Patient Refused) Surgical History Surgery Date Site/Laterality Comments CORONARY STENT PLACEMENT 06/28/2018 - 06/27/2019 RCA, details lacking INGUINAL HERNIA REPAIR Right Details lacking. UMBILICAL HERNIA REPAIR Details lacking. ESOPHAGOGASTRODUODENOSCOPY 08/17/2023 N/A Localized mild inflammation characterized by congestion (edema) and erythema was found in the gastric antrum. Biopsies were taken. LA grade B esophagitis with small esophageal ulcer, no stigmata of recent bleeding. Nonobstructive Schatzki's ring. COLONOSCOPY W/ POLYPECTOMY 01/27/2024 Multiple polyps resected. COLONOSCOPY 11/23/2014 N/A One 3 mm polyp resected Medical History Medical History Date Comments Hyperlipidemia Hyperlipidemia Diabetes mellitus (HCC) Diabetes mellitus Hypertension Hypertension Personal history of other en docrine, nutritional and metabolic disease History of diabetes mellitus - (Added by TW Conv) Type 2 diabetes mellitus (HCC) Medicare annual wellness vis it, subsequent 02/09/2018 Dr. Padgett. Class 1 obesity due to exces s calories with serious comorbidity and body mass index (BMI) of 34.0 to 34.9 in adult 09/08/2019 Weight loss, BMI around 30 as of 2023. Hospital discharge follow-up 06/15/2019 For GI bleed, angina, see office note by CULLEN Arriaga. S/P right coronary artery (R CA) stent placement 07/21/2019 Mid and distal right coronar y artery with deployment of overlapping 2.75 and 3.0 mm??JASMIN. Chronic kidney disease 02/02/2022 Stage III B. Gastrointestinal hemorrhage 08/15/2023 Offi ce follow-up by CULLEN Arriaga. NSTEMI (non-ST elevated myoc ardial infarction) (CMS/HCC) ([facility]) 06/05/2019 Stent in RCA, details lack ing. Acute renal failure superimp osed on stage 3 chronic kidney disease (HCC) 06/05/2019 At time of acute WI due to RCA stenosis. Pityriasis rosea 11/03/2018 Office visit, Janak Romero, see progress note. Elevated PSA Family History Medical History Relation Name Comments Diabetes Father Diabetes mellit us; Heart attack Father Family history of myocardial infarction - (Added by TW Conv) Diabetes Sister Family history of diabetes mellitus - (Added by TW Conv) Relation Name Status Comments Father Sister Social History Tobacco Use Types Packs/Day Years Used Date Smoking Tobacco: Former Cigarettes 3 16 0 06/28/1956 - 06/27/1972 Cigars Smokeless Tobacco: Never Alcohol Use Standard Drinks/Week Comments No 0 (1 standard drink = 0.6 oz pur e alcohol) [facility] Utilities Answer Date Recorded In the past 12 months has e [employer], gas, oil, or water company threatened to shut off services in your home? No 02/16/2024 Social Connection and Isolat ion Panel [NHANES] Answer Date Recorded In a typical week, how many times do you talk on the phone with family, friends, or neighbors? More than three times a week 02/16/2024 How often do you get togethe r with friends or relatives? More than three times a week 02/16/2024 How often do you attend chur ch or jewish services? More than 4 times per year 02/16/2024 Do you belong to any clubs o r organizations such as restorationist groups, unions, fraternal or athletic groups, or school groups? Yes 02/16/2024 How often do you attend meet ings of the clubs or organizations you belong to? More than 4 times per year 02/16/2024 Are you , , di vorced, , never , or living with a partner? 02/16/2024 AUDIT-C Answer Date Recorded Q1: How often do you have a drink containing alcohol? Never 02/15/2024 Q2: How many drinks containi ng alcohol do you have on a typical day when you are drinking? Patient does not drink Q3: How often do you have si x or more drinks on one occasion? Never 02/15/2024 Overall Financial Resource Strain (CARDIA) Answe r Date Recorded How hard is it for you to pa y for the very basics like food, housing, medical care, and heating? Not hard at all 02/16/2024 PHQ-2 Answer Date Recorded PHQ-2 Total Score (If total score is 3 or more points, staff should administer the PHQ-9) 0 03/13/2024 Hunger Vital Sign Answer Date Recorded Within the past 12 months, y ou worried that your food would run out before you got the money to buy more. Never true 02/16/20 24 Within the past 12 months, t he food you bought just didn't last and you didn't have money to get more. Never true 02/16/2024 PRAPARE - Transportation Answer Date Re corded In the past 12 months, has l ack of transportation kept you from medical appointments or from getting medications? No 01/27 In the past 12 months, has l ack of transportation kept you from meetings, work, or from getting things needed for daily living? No 02/16/2024 Housing Stability Vital Sign Answer Sohail e Recorded In the last 12 months, was t here a time when you were not able to pay the mortgage or rent on time? No 08/16/2023 In the last 12 months, how many places have you lived? 1 08/16/2023 In the last 12 months, was t here a time when you did not have a steady place to sleep or slept in a nursing home (including now)? No 08/16/2023 Housing Stability Vital Sign Answer Sohail e Recorded In the last 12 months, was t here a time when you were not able to pay the mortgage or rent on time? No 02/16/2024 In the past 12 months, how m any times have you moved where you were living? 0 02/16/2024 At any time in the past 12 m [facility], were you homeless or living in a nursing home (including now)? No 02/16/2024 Personal Safety Answer Date Recorded Have you ever been in or are you currently in a harmful physical or emotional relationship or is someone making you feel afraid or unsafe? 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 [employer] Not on fi le Not on file Not on file Obstetrics History Last Filed Vital Signs Vital Sign Reading Time Taken Comments Blood Pressure 157/76 04/04/2024 2:30 PM CDT Pulse 95 04/04/2024 2:30 PM CDT Temperature 36.3 ??C (97.3 ??F) 04/04/2024 2:30 PM CD T Respiratory Rate 20 04/04/2024 2:30 PM CDT Oxygen Saturation 95% 04/04/2024 2:30 PM CDT Inhaled Oxygen Concentration - - Weight 87.1 kg (192 lb) 04/04/2024 2:30 PM CDT Height 165.1 cm (5' 5 ) 03/28/2024 10:27 AM CDT Body Mass Index 31.95 03/28/2024 10:27 AM CDT Plan of Treatment Health Maintenance Due Date Last Done Comments Hepatitis B Screening 1958 Zoster Vaccine (1 of 2) 1991 Albumin Creatinine Ratio, Urine 10/28/2022 , 11/10/2018 Lipid Panel 10/28/2022 10/28/2021, 09/27, 12/25/2019, Additional history exists Dilated Eye Exam 02/19/2023 02/19/2022, 02/2022, 10/31/2021, Additional history exists Influenza Vaccine (#1) 2024 Hemoglobin A1C 09/10/2024 03/13/2024, 080 06/2023, 08/15/2023, Additional history exists Depression Screening 03/13/2025 03/13/2024, 11/01/2023, 10/21/2021, Additional history exists Fall Risk Assessment 03/13/2025 03/13/2024, 02/17/2024, 11/01/2023, Additional history exists Foot Exam 03/13/2025 03/13/2024, 11/27, 12/21/2019, Additional history exists Well Visit 65+ 03/13/2025 03/13/2024, 09/27, 12/23/2020, Additional history exists eGFR 03/28/2025 03/28/2024, 090 02/2024, 02/17/2024, Additional history exists Abdominal Aortic Aneurysm (A AA) Screen Completed 05/17/2024, 01/26/2024, 08/15/2023, Additional history exists DTaP/Tdap/Td Vaccine Discontinued Pneumococcal vaccine 65+ Discontinued Goals Goal Patient Goal Type Associated Problems Recent Progress Patient-Stated? Author [facility] No Gina Booker, PRABHU Note: To be comfortable enough to get a good nights sleep. 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 Shelf Expiration Date Model / Serial / Lot [employer]ig [employer] [id number] Angio-Seal Evolution 6fr .035in Guidewire Bypass Tube Suture - [id number] Implanted:Qty: 1 on 06/06/2019 by Zay Sheth MD at [facility] Other - see comments [employer] 01/26/2020 [id number] / / [id number] [employer] An [id number] Synergy 2.75mm 24mm 144cm Radiopaque 1 Access Port Inflation - [id number] Implanted:Qty: 1 on 06/06/2019 by Zay Sheth MD at [facility] Stent [employer] An 02/21/2021 [id number] / / [id number] [employer] [id number] System Coronary Stent Xience Jayda Everolimus L15 Mm Od3 Mm Rapid Exchange - [id number] Implanted:Qty: 1 on 06/06/2019 by Zay Sheth MD at [facility] Stent [employer] 03/09/2020 [id number] / / [id number] Xience Stent Promus Stent Heart Procedures Procedure Name Priority Date/Time Associated Diagnosis Comments CT ABDOMEN PELVIS WO CONTRAST Schedule CHRIS, Read Routine (Patient lives out of area) 05/17/2024 3:36 PM 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 Elevated prostate specific antigen (PSA) EGFR Routine 03/28/2024 10:15 AM CDT Elevated prostate specific antigen (PSA) HEMOGLOBIN A1C Routine 03/13/2024 1:23 PM CDT Type 2 diabetes mellitus with other circulatory complication, with long-term current use of insulin (HCC) DIABETIC EYE EXAM Routine 02/19/2022 LIPID PANEL Routine 10/28/2021 10:47 AM CDT Medicare annual wellness visit, subsequent Essential hypertension Type 2 diabetes mellitus with chronic kidney disease, with long-term current use of insulin, unspecified CKD stage (HCC) ALBUMIN CREATININE RATIO, URINE Routine 10/28/2021 10:47 AM CDT Type 2 diabetes mellitus with chronic kidney disease, with long-term current use of insulin, unspecified CKD stage (HCC) from Last 3 Months or Most Recently Relevant to Health Maintenance Results * CT Abdomen Pelvis WO Contrast (05/17/2024 3:36 PM 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 CT ABDOMEN PELVIS WO CONTRAST REASON FOR STUDY: ?? Patient has an elevated PSA, Patient has elevated PSA ? prostate cancer ?? Elevated PSA ? TECHNIQUE: CT scan of the abdomen and pelvis performed without intravenous and without ??oral contrast using helical scanning technique. Reconstructed coronal and sagittal MPR images reviewed. All images stored on PACS. Automated exposure control was used as a dose optimization technique for this examination. COMPARISON: ?? 01/26/2024 FINDINGS: The sensitivity for detection of visceral lesions is diminished without the use of intravenous contrast. LOWER CHEST: ?? No significant pulmonary abnormalities. No effusion. LIVER: ?? Normal size. ??No identified cystic or solid masses. GALLBLADDER: ?? Unremarkable BILE DUCTS: ?? No intrahepatic or extrahepatic ductal dilatation. SPLEEN: ?? Normal size. ??No focal lesions. PANCREAS: ?? No identified cystic or solid masses. ??No significant calcifications. No adjacent inflammation or peripancreatic fluid collections. Pancreatic duct not dilated. ADRENALS: ?? Normal. KIDNEYS/URINARY TRACT: ?? No identified significant cystic or solid masses. No stones. No hydronephrosis or hydroureter. ?Urinary bladder is unremarkable. GI: ?? No dilated bowel loops. No obvious wall thickening. ??Normal appendix. ?? Diffuse diverticulosis is seen of the distal colon without evidence of diverticulitis.. PERITONEUM: ?? No ascites or free air. RETROPERITONEUM: ?? No mass or adenopathy. REPRODUCTIVE: ?? Prostate gland is moderately prominent with axial dimensions of 5.2 cm x 4.7 cm. VASCULATURE: ?? No abdominal aortic aneurysm. ?? Diffuse atherosclerotic calcification is evident. ??No aneurysm is seen. MUSCULOSKELETAL: ?? No significant abnormality. OTHER: ?? No other abnormality. IMPRESSION: No acute findings in the abdomen or pelvis. Colonic diverticulosis without evidence of diverticulitis. Moderate prostate enlargement. ??No lymphadenopathy is seen. ??No bone lesions are identified. ??Prostate cancer is not excluded based on this exam. THIS IS AN ELECTRONICALLY VERIFIED FINAL REPORT 05/18/2024 2:45 AM - Electronically signed by ??Jamal Delgado M.D. KH: ROSY D: ??05/18/2024 2:45 AM T: ??05/18/2024 2:45 AM Report ID: [id number] Reading Location: ??[id number] Procedure Note Jamal Delgado MD - 05/18/2024 EXAM DESCRIPTION: CT ABDOMEN PELVIS WO CONTRAST REASON FOR STUDY: Patient has an elevated PSA, Patient has elevated PSA? prostate cancer Elevated PSA TECHNIQUE: CT scan of the abdomen and pelvis performed without intravenousand without oral contrast using helical scanning technique. Reconstructed coronal and sagittal MPR images reviewed. All images stored on PACS.Automated exposure control was used as a dose optimization technique for this examination. COMPARISON: 01/26/2024 FINDINGS: The sensitivity for detection of visceral lesions is diminished withoutthe use of intravenous contrast. LOWER CHEST: No significant pulmonary abnormalities. No effusion. LIVER: Normal size. No identified cystic or solid masses. GALLBLADDER: Unremarkable BILE DUCTS: No intrahepatic or extrahepatic ductal dilatation. SPLEEN: Normal size. No focal lesions. PANCREAS: No identified cystic or solid masses. No significant calcifications. No adjacent inflammation or peripancreatic fluidcollections. Pancreatic duct not dilated. ADRENALS: Normal. KIDNEYS/URINARY TRACT: No identified significant cystic or solid masses.No stones. No hydronephrosis or hydroureter. Urinary bladder isunremarkable. GI: No dilated bowel loops. No obvious wall thickening. Normalappendix. Diffuse diverticulosis is seen of the distal colon without evidence of diverticulitis.. PERITONEUM: No ascites or free air. RETROPERITONEUM: No mass or adenopathy. REPRODUCTIVE: Prostate gland is moderately prominent with axialdimensions of 5.2 cm x 4.7 cm. VASCULATURE: No abdominal aortic aneurysm. Diffuse atherosclerotic calcification is evident. No aneurysm is seen. MUSCULOSKELETAL: No significant abnormality. OTHER: No other abnormality. IMPRESSION: No acute findings in the abdomen or pelvis. Colonic diverticulosis without evidence of diverticulitis. Moderate prostate enlargement. No lymphadenopathy is seen. No bonelesions are identified. Prostate cancer is not excluded based on this exam. THIS IS AN ELECTRONICALLY VERIFIED FINAL REPORT 05/18/2024 2:45 AM - Electronically signed by Jamal Delgado M.D. KH: ROSY Report ID: [id number] Reading Location: [place] [address] us Angel Combs MD IMG CT PROCEDURES Final R esult * (ABNORMAL) eGFR (03/28/2024 10:15 AM CDT) eGFR 25(L) >=60 mL/min/1. 73 m2 Comment: Interpretive Data Reference Interval Normal ?>/= 90 mL/min/1.73m2 Mildly decreased* ? 60 - 89 mL/min/1.73m2 Mildly to moderately decreased ?45 - 59 mL/min/1.73m2 Moderately to severely decreased ??30 - 44 mL/min/1.73m2 Severely decreased ?15 - 29 mL/min/1.73m2 Kidney Failure ?< 15 ??mL/min/1.73m2 *Relative to young adult level Estimated glomerular filtration rate is determined by the 2020 CKD-EPI equation recommended by the National Kidney Foundation (A Unifying Approach to GFR Estimation: Recommendations of the NKF-ASK Task Force on Reassessing the Inclusion of Race in Diagnosing Kidney Disease, JASN 2020). The CKD-EPI equation should not be used for patients with unstable renal function and has not been validated in children and those over 70. Current interpretive data was last reviewed 2021. Testing performed by: [facility], [address] [facility], [place], [address] Blood 03/28/2024 10:1 5 AM CDT 03/28/2024 11:45 AM CDT Angel Combs MD LAB BLOOD ORDERABLES Nkechi l Result Performing Organization Address City/[facility]/ZIP Co de Phone Number [facility] [address] [facility] Department [place] [address] * (ABNORMAL) Hemoglobin A1c (03/13/2024 1:23 PM CDT) Hgb A1C 7.0(H) 4.0 - 5.6 % Comment:Testing performed by : [address] [address] Estimated Average Glucose 154 mg/dL [facility] Comment: The ADA recommends reporting an estimated Average Glucose (eAG) with all Hemoglobin A1c results using the equation derived from a study of 507 normal and diabetic adults. ??Minority populations were underrepresented and children were not included. ?? (Diabetes Care 31:9309-1035, 2008). ??The eAG is not equivalent to a fasting glucose. Testing performed by: [facility], [address] [place] [address]., [address] Blood 03/13/2024 1:23 PM CDT 03/13/2024 9:00 PM CDT Maria Negrete MD LAB BLOOD ORDERABLES Final Re sult Performing Organization Address City/[facility]/ZIP Co de Phone Number [facility] [id number] [facility] Department [place] [address] * (ABNORMAL) Diabetic Eye Exam (02/19/2022) Priyanka Marshall MD HEALTH MAINTENANCE Final Result * (ABNORMAL) Albumin Creatinine Ratio, Urine (10/28/2021 10:47 AM CDT) Albumin Ur 1,475.8 mg/L [facility] Comment: Interpretive Data No reference range established. Current interpretive data was last revised 2018. Creatinine Ur 185.1 mg/dL [facility] Comment: Interpretive Data No reference range established. Current interpretive data was last revised 2018. Albumin Creatinine Ratio, Ur 797(H) 1 - 29 mg/g [facility] Urine 10/28/2021 10:4 7 AM CDT 10/28/2021 5:31 PM CDT us Maria Esther Padgett MD LAB URINE ORDERABLES Final R esult [facility] [id number] Department [place] [address] * (ABNORMAL) Lipid panel (10/28/2021 10:47 AM CDT) Cholesterol 121 30 - 199 mg/dL [facility] Comment: Interpretive Data Ages < or = 19 years ??Acceptable: ? <170 mg/dL ??Borderline high: ??170-199 mg/dL ??High: ? >or= 200 mg/dL Ages > or = 20 years ??Desirable: ?<200 mg/dL ??Borderline high: ??200-239 mg/dL ??High: ? >or= 240 mg/dL Literature References: 1. Expert Panel on Integrated Guidelines for Cardiovascular Health and Risk Reduction in Children and Adolescents. Pediatrics 2011;128:S213 2. NCEP Expert Panel. Circulation 2004;110:227 Current Interpretive Data was last revised on 2018. Triglycerides 132 <=149 mg/dL [facility] Comment: Interpretive Data Ages < or = 9 years ??Acceptable: ? <75 mg/dL ??Borderline high: ??75-99 mg/dL ??High: ? >or= 100 mg/dL Ages 10 to 20 years ??Acceptable: ? <90 mg/dL ??Borderline high: ??90-129 mg/dL ??High: ? >or= 130 mg/dL Ages > or = 20 years ??Desirable: ?<150 mg/dL ??Borderline high: ??150-199 mg/dL ??High: ? 200-499 mg/dL ?Very high: ?? >or= 499 mg/dL Literature References: 1. Expert Panel on Integrated Guidelines for Cardiovascular Health and Risk Reduction in Children and Adolescents. Pediatrics 2011;128:S213 2. NCEP Expert Panel. Circulation 2004;110:227 Current Interpretive Data was last revised on 2018. HDL 32(L) >=40 mg/dL [facility] JIMENEZ Comment: Interpretive Data Ages < or = 19 years ??Acceptable: ? >45 mg/dL ??Borderline low: ?? 40-45 mg/dL ??Low: ? <40 mg/dL Ages > or = 20 years ??Desirable: ?>or= 60 mg/dL ??Low: ? <40 mg/dL Literature References: 1. Expert Panel on Integrated Guidelines for Cardiovascular Health and Risk Reduction in Children and Adolescents. Pediatrics 2011;128:S213 2. NCEP Expert Panel. Circulation 2004;110:227 Current Interpretive Data was last revised on 2018. LDL, calculated 63 <=129 mg/dL [facility] JIMENEZ Comment: Interpretive Data Ages < or = 19 years ??Acceptable: ? <110 mg/dL ??Borderline high: ??110-129 mg/dL ??High: ?>or= 130 mg/dL Ages > or = 20 years ??Optimal: ? <100 mg/dL ??Near optimal: ?100-129 mg/dL ??Borderline high: ?? 130-159 mg/dL ??High: ?>160 mg/dL Literature References: 1. Expert Panel on Integrated Guidelines for Cardiovascular Health and Risk Reduction in Children and Adolescents. Pediatrics 2011;128:S213 2. NCEP Expert Panel. Circulation 2004;110:227 Current Interpretive Data was last revised on 2018. Non-HDL Cholesterol 89 mg/dL [facility] JIMENEZ Comment: Interpretive Data Ages < or = 19 years ??Acceptable: ?<120 mg/dL ??Borderline high: ??120-144 mg/dL ??High: ?>145 mg/dL Ages > or = 20 years ??When triglycerides are >200 mg/dL, Non-HDL cholesterol is a secondary target of ? therapy with treatment goals that are 30 mg/dL greater than the LDL cholesterol target. ? Literature References: 1. Expert Panel on Integrated Guidelines for Cardiovascular Health and Risk Reduction in Children and Adolescents. Pediatrics 2011;128:S213 2. NCEP Expert Panel. Circulation 2004;110:227 Current Interpretive Data was last revised on 2018. 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 Use antibiotics, IV Fluids, and medical treatment unless specifically selected below: No intubation * Full Code Date Activated Date Inactivated Comments 02/15/2024 5:21 PM 02/15/2024 7:38 PM * Full Code Date Activated Date Inactivated Comments 02/13/2024 7:49 AM 02/15/2024 5:01 PM * Full Code Date Activated Date Inactivated Comments 01/27/2024 3:04 PM 01/28/2024 3:18 PM * Full Code Date Activated Date Inactivated Comments 01/26/2024 1:59 AM 01/27/2024 3:04 PM Care Teams Distribution Field Engineer Relationship Specialty Start Date End Date Patrice Rico NP [address] [facility] [address] [place] [address] [place] [id number] Nurse Practitioner Internal Medicine 08/26/23 Joselin Mcbride MD [address] [place] [address] DR SHELLEY [address] [place] [id number] Consulting Physician Gastroenterology 01/28/24 Eryn Araya, PT Physical Therapist Physical Therapy 03/01/24
--- OUTSIDE RECORDS SUMMARY | 2024-07-20 02:38 | XMS_ITS | Referral Summary ---
Author Organization [facility] Address [address] [place] [address] Care Team Providers Care Pharmacy Laboratory Technician Name Role Phone Jacky Patrice Moraes NP Unavailable [phone] Joseiln Mcbride MD Unavailable [phone] Eryn Araya PT Unavailable Unavailabl e Encounters Date Type Department Care Team Description 05/24/2024 Telephone [facility] [place] [facility] [address] [place] [address] Maria Negrete MD Missed/ NO show for Urology 05/17/2024 Telephone [facility] [address] [place] [address] [address] [place] [address] Kimberly Peña CLT 05/17/2024 3:22 PM LOCATION ANALYST - 05/17/2024 11:59 PM LOCATION ANALYST Hospital Encounter [facility] [address] [place] [address] Elevated prostate specific antigen (PSA) Discharge Disposition: Discharge to home or self care 05/05/2024 Orders Only [facility] [address] [place] [address] [address] [place] [address] Angel Combs MD Elevated prostate specific antigen (PSA) (Primary Dx) 05/03/2024 Telephone [place] [facility] [address] [facility] [place] [address] Cynthia Velez MA Procedure (PCI) 05/01/2024 Telephone [facility] Medical [facility] [place] [facility] [address] [place] [address] Maria Negrete MD Gluose Meter 05/01/2024 Telephone [facility] [address] [facility] [address] [place] [address] Angel Combs MD 04/28/2024 Telephone [facility] [address] [place] [address] Maria Negrete MD from Last 3 Months Allergies Active Allergy Reactions Criticality Noted Date Comments Clopidogrel Unknown 10/04/2013 diarrhea Hydrochlorothiazide Dizziness Low Reaction: lightheadedness, Iodine Rash Medium 07/07/2013 Medications pen needle, diabetic 32 gauge x 09/10 needle Use one /day for insulin pen 100 each 3 021 Active alcohol swabs pads, medicated Use before injecting insulin or doing finger sticks to clean area, 3 per day DX E11.65, Z79.4 300 each 3 021 Active cholecalciferol (VITAMIN D-3) 2000 unit capsule 1 capsule (2,000 Units total) avionics installer before breakfast Active lancets misc Use to [...] (two) times a day 30 tablet 5 024 Active furosemide (LASIX) 20 mg tablet Take 1 tablet (20 mg total) by mouth avionics installer before breakfast 30 tablet 11 024 2024 [...] complication, with long-term current use of insulin ([facility]) Use to test blood glucose 2 times each day DX E11.65, Z79.4 1 kit Active blood glucose diagnostic (OneTouch Verio test strips) stripIndications:Ty pe 2 diabetes mellitus with other circulatory complication, with long-term current use of insulin ([facility]),Type 2 diabetes mellitus with hyperglycemia, with long-term current use of insulin ([facility]) USE TO TEST BLOOD SUGAR TWICE DAILY DIRECTED BY PHYSICIAN 200 each 3 Active lancets (OneTouch Delica Plus Lancet) 33 gauge miscIndications:Typ e 2 diabetes mellitus with hyperglycemia, with long-term current use of insulin ([facility]),Type 2 diabetes mellitus with hyperglycemia, unspecified whether terminal system operator insulin use ([facility]) USE TO TEST BLOOD SUGAR TWICE DAILY DIRECTED BY PHYSICIAN 100 each 3 Active glimepiride (AMARYL) 2 mg tabletIndications:T ype 2 diabetes mellitus with hyperglycemia, with long-term current use of insulin ([facility]) TAKE ONE (1) TABLET BY MOUTH TWICE DAILY AT LUNCH AND DINNER 120 tablet 2 024 Active blood glucose diagnostic (glucose blood) strip [...] Diagnosed Date Coronary artery disease invo lving [place] coronary artery of [place] heart 03/14/2024 Class 1 obesity due to [...] kidney disease) stage 4, GFR 15-29 ml/min (CMS/HCC) 03/08/2024 Overview (03/12/2024): Progressed to stage 4 [...] that was prescibed. We advised him to picker packer and start taking the medications. We ordered a follow-up CBC and BMP. Lab Results Component Value Date WBC 10.0 (H) 08/18/2023 HGB 8.5 (L) 08/18/2023 HCT 28.4 (L) 08/18/2023 MCV 85.5 08/18/2023 LABPLAT 252 08/18/2023 Assessment & Plan (08/29/2023 6:18 PM LOCATION ANALYST): See recent hospital details for GI bleed [...] disease. I plan to re- evaluate his yqic-rs-fajhuxjx disease with carotid ultrasound. Coronary artery disease invo lving [place] heart without angina pectoris 06/05/2019 Overview (10/31/2023): [...] not rinsing correctly. Also, they stated that [facility] Paid for the eucrisa but sent them [...] behavioral disturbance 02/10/20 18 Overview (10/31/2023): Per SALON RECEPTIONIST office note. Assessment & Plan (02/22/2024 10:27 [...] I cannot find any notes from a travel director since 2012. He saw Dr. Vera at [...] arrange for consultation with current providers at [facility]. Assessment & Plan (10/10/2018 3:21 PM [...] Stable. Assessment & Plan (08/16/2018 9:33 AM LOCATION ANALYST): Lipid abnormalities are improving with treatment. Pharmacotherapy as ordered. Lipids will be reassessed in 6 months. Assessment & Plan (05/16/2018 8:47 PM LOCATION ANALYST): Lipid abnormalities are improving with treatment. 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) 03/29/2014 Overview (10/02/2016): Hypertension Assessment & Plan [...] annual. Assessment & Plan (08/29/2023 6:16 PM LOCATION ANALYST): BP stable in office today on current therapy. 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 No acute findings on exam. Recent hospital [...] management. Assessment & Plan (08/16/2018 9:32 AM LOCATION ANALYST): Hypertension is worsening. Dietary sodium restriction. Regular aerobic exercise. Medication changes per orders. Blood pressure will be reassessed in 4 weeks Add toprol xl 25mg daily. F/u 1 month for blood pressure check. Repeat cmp in 1 month. Assessment & Plan (05/16/2018 8:47 PM LOCATION ANALYST): Hypertension is improving with treatment. Continue current [...] labs. Assessment & Plan (08/29/2023 6:16 PM LOCATION ANALYST): Non-compliant, recent Hb A1c while in hospital [...] basis. Assessment & Plan (05/06/2021 3:08 PM LOCATION ANALYST): Diagnosed in . Started insulin November Control [...] Plan (09/30/2020 9:55 AM CDT): Diagnosed in 1970s. Started insulin November Control : fasting hypoglycemia [...] referral. Will refer to urology Diabetic polyneuropathy ([facility]) 02/06/2013 Assessment & Plan (11/26/2017 4:40 PM CDT): Hx of polyneuropathy. Will start with referral to neurology. Consider referral to pain management. Increase gabapentin to 300mg TID x 3-7 days, then increase to 300 am, noon and 600mg at bedtime. Diverticulitis Resolved Problems Problem Noted Date Diagnosed Date Resolved Date Unstable angina pectoris ([facility]) 08/15/2023 08/25/2023 Rectal bleeding 08/15/2023 08/25/2023 Chronic [...] Arriaga. Assessment & Plan (08/29/2023 6:15 PM LOCATION ANALYST): See hospital details above, testing and labs [...] hydrated. Assessment & Plan (06/15/2019 9:05 PM LOCATION ANALYST): Has home health for a few more days. Is trying to increase activity slowly. Overall doing well. Feeling bloated. Will check labs. Has f/u with cardiology scheduled. Acute renal failure superimp osed on stage 3 chronic kidney disease 06/05/2019 10/31/2023 Overview (10/31/2023): At time of acute [place] due to RCA stenosis. Pityriasis rosea 11/03/2018 [...] Needs Essence referral for upcoming appointment to closet builder. Atherosclerosis of coronary artery 07/04/2013 07/21/2019 Assessment & Plan (06/15/2019 9:08 PM LOCATION ANALYST): Will check BNP today. C/o of feeling [...] 3 pounds/day. Diabetic neuropathy 02/06/2013 10/21/19 18 Immunizations Name Administration Dates Next Due Influenza, Unspecified 04/23/2023(Deferr ed: Patient Refused),04/07/2023(Deferred: Patient Refused),08/16/2020(Deferred: Patient Refused),03/28/2020(Deferred: Patient Refused),03/28/2019(Deferred: Patient Refused),05/16/2018(Deferred: Patient Refused),03/28/2018(Deferred: Patient Refused) Pneumococcal Conjugate, Unspecified 02/09/2018(D eferred: Patient Refused) Social History Tobacco Use Types Packs/Day Years Used Date Smoking Tobacco: Former Cigarettes 3 16 0 06/28/1956 - 06/27/1972 Cigars Smokeless Tobacco: Never Alcohol Use Standard Drinks/Week Comments No 0 (1 standard drink = 0.6 oz pur e alcohol) [facility] Utilities Answer Date Recorded In the past 12 months has e [employer], [employer], oil, or water [facility] threatened to shut off services in your [...] week 02/16/2024 How often do you attend [facility] ch or anglican services? More than 4 times per year 02/16/2024 Do you belong to any clubs o r organizations such as caodaism groups, unions, fraternal or athletic groups, or [...] place to sleep or slept in a long term (including now)? No 08/16/2023 Housing Stability Vital Sign Answer Sohail e Recorded In the last 12 months, was t here a time when you were not able to pay the mortgage or rent on time? No 02/16/2024 In the past 12 months, how m any times have you moved where you were living? 0 02/16/2024 At any time in the past 12 m [facility], were you homeless or living in a long term (including now)? No 02/16/2024 Personal Safety Answer Date Recorded Have you ever been in or are you currently in a harmful physical or emotional relationship or is someone making you feel afraid or unsafe? 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 Author [facility] No Gina Booker RN Note: To be comfortable enough to get a good nights sleep. 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 Type Area Manager Fixed Income Device Identifier Shelf Expiration Date Model / Serial / Lot [employer]ig An[employer] [id number] Angio-Seal Evolution 6fr .035in Guidewire Bypass Tube Suture - [id number] Implanted:Qty: 1 on 06/06/2019 by Zay Sheth MD at [facility] Other - see comments [employer] 01/26/2020 [id number] / / [id number] [employer] An [id number] Synergy 2.75mm 24mm 144cm Radiopaque 1 Access Port Inflation - [id number] Implanted:Qty: 1 on 06/06/2019 by Zay Sheth MD at [facility] Stent [employer] An 02/21/2021 [id number] / / [id number] [employer] [id number] System Coronary Stent Xience Jayda Everolimus L15 Mm Od3 Mm Rapid Exchange - [id number] Implanted:Qty: 1 on 06/06/2019 by Zay Sheth MD at [facility] Stent [employer] 03/09/2020 [id number] Xience Stent Promus Stent Heart Procedures Procedure Name Priority Date/Time Associated Diagnosis Comments CT ABDOMEN PELVIS WO CONTRAST Schedule CHRIS, Read Routine (Patient lives out of area) 05/17/2024 3:36 PM LOCATION ANALYST Elevated prostate specific antigen (PSA) EGFR Routine [...] Abdomen Pelvis WO Contrast (05/17/2024 3:36 PM LOCATION ANALYST) Anatomical Region Laterality Modality Body N/A Computed Tomogra phy 05/18/2024 2:40 AM LOCATION ANALYST Narrative 05/18/2024 2:45 AM LOCATION ANALYST EXAM DESCRIPTION: ?? CT ABDOMEN PELVIS WO [...] AM T: ??05/18/2024 2:45 AM Report ID: [id number] Reading Location: ??[id number] Procedure Note Jamal Delgado MD - 05/18/2024 [...] Jamal Delgado M.D. KH: ROSY Report ID: [id number] Reading Location: [place] [address] Angel Combs MD IM CT PROCEDURES Final R esult * (ABNORMAL) [...] was last reviewed 2021. Testing performed by: [facility], [facility], [place], [address] Blood 03/28/2024 10:1 5 AM CDT 03/28/2024 11:45 AM CDT us Angel Combs MD LAB BLOOD ORDERABLES Nkechi snider Result [facility] [address] [facility] Department [place] [address] * (ABNORMAL) Hemoglobin A1c (03/13/2024 1:23 PM CDT) Hgb A1C 7.0(H) 4.0 - 5.6 % Comment:Testing performed by : [facility], [address] [place] [address]., [id number] Estimated Average Glucose 154 mg/dL [facility] Comment: The ADA recommends reporting an estimated Average Glucose (eAG) with all Hemoglobin A1c results using the equation derived from a study of 507 normal and diabetic adults. ??Minority populations were underrepresented and children were not included. ?? (Diabetes Care 31:2866-1115, 2008). ??The eAG is not equivalent to a fasting glucose. Testing performed by: [address] [place] [address] Blood 03/13/2024 1:23 PM CDT 03/13/2024 9:00 PM CDT us Maria Negrete MD LAB BLOOD ORDERABLES Final Re sult Performing Organization Address [facility] de Phone Number [facility] [address] [place] [address] * (ABNORMAL) Diabetic Eye Exam (02/19/2022) Historical Provider HEALTH MAINTENANCE Final Result * (ABNORMAL) Albumin [...] 7 AM CDT 10/28/2021 5:31 PM CDT Maria Esther Padgett MD LAB URINE ORDERABLES Final R esult Performing Organization Address [facility] de Phone Number [facility] [address] [place] [address] * (ABNORMAL) Lipid panel (10/28/2021 10:47 AM [...] on 2018. HDL 32(L) >=40 mg/dL [facility] Comment: Interpretive Data Ages < [...] on 2018. LDL, calculated 63 <=129 mg/dL [facility] Comment: Interpretive Data Ages < or = [...] LAB BLOOD ORDERABLES Final R esult [facility] [address] Department [place] [address] from Last 3 Months or Most Recently Relevant to Health Maintenance Insurance MEDICARE [employer] Member Subscriber Plan / Payer (Ef fective 2022-) Name:Jonathan Piper Relation to Subscriber:Self Name:Jonathan Piper Payer ID:[id number] (NAIC) Type:[facility] MEDICARE Address: [place] [id number] [place] [address] Advance Directives For more information, please contact: [phone] Documents on File Type Date Recorded Patient Fresh Foods Clerk Expl anation ADVANCE DIRECTIVE 01/31/2024 10:37 AM Power of Watch Train Assembler-Medical * LIMITED - No CPR (Latest Code [...] 1:59 AM 01/27/2024 3:04 PM Care Teams Pharmacy Laboratory Technician Relationship Specialty Start Date End Date Patrice Rico NP [address] [facility] [address] [place] [address] Nurse Practitioner Internal Medicine 08/26/23 Joselin Mcbride MD [address] [place] [address] [address] [place] [address] Consulting Physician Gastroenterology 01/28/24 Eryn Araya, PT Physical Therapist Physical Therapy 03/01/24
--- OUTSIDE RECORDS SUMMARY | 2024-07-20 02:38 | XMS_ITS | Encounter Summary ---
Author Organization [facility] Address [address] [place] [address] Phone Care Team Providers Care Certified Alcohol Counselor Name Role Phone Juan José Mcbride DO Unavailable [phone] Maria Esther Padgett MD Primary Care Provider [phone] Patrice Rico TRANSIT AUTHORITY POLICE OFFICER Unavailable [phone] Linus Self MD Primary Care Provider [phone] No, Physician Primary Care Provider [phone] Joselin Mcbride MD Unavailable [phone] Linus Self MD Primary Care Provider [phone] Eryn Araya PT Unavailable Unavailabl e Encounter Details Date Type Department Care Team (Late st Contact Info) Description 12/03/2021 Orders Only [facility] Professional 1,2,[address] [place] [address] Scanning, Provider Social History Tobacco Use Types Packs/Day Years Used Date Smoking Tobacco: Former Cigarettes 3 16 0 06/28/1956 - 06/27/1972 Cigars Smokeless Tobacco: Never Alcohol Use Standard Drinks/Week Comments No 0 (1 standard drink = 0.6 oz pur e alcohol) Social Connection and Isolat ion Panel [NHANES] Answer Date Recorded In a typical week, how many times do you talk on the phone with family, friends, or neighbors? More than three times a week 2021 How often do you get togethe r with friends or relatives? Twice a week 2021 Attends Islam Services Not on file 01/23 Active Member of Clubs or Organizations Not on f ile 2021 Attends Club or Organization Meetings Not on michelle e 2021 Are you , , di vorced, , never , or living with a partner? 2021 Overall Financial Resource Strain (CARDIA) Answe r Date Recorded How hard is it for you to pa y for the very basics like food, housing, medical care, and heating? Not hard at all 2021 PHQ-2 Answer Date Recorded PHQ-2 Total Score (If total score is 3 or more points, staff should administer the PHQ-9) 0 10/21/2021 Hunger Vital Sign Answer Date Recorded Within the past 12 months, y ou worried that your food would run out before you got the money to buy more. Never true 01/24/20 21 Within the past 12 months, t he food you bought just didn't last and you didn't have money to get more. Never true 2021 PRAPARE - Transportation Answer Date Re corded In the past 12 months, has l ack of transportation kept you from medical appointments or from getting medications? No 12/27 In the past 12 months, has l ack of transportation kept you from meetings, work, or from getting things needed for daily living? No 2021 Housing Stability Vital Sign Answer Sohail e Recorded In the last 12 months, was t here a time when you were not able to pay the mortgage or rent on time? No 2021 Number of Places Lived in the Last Year Not on f ile 2021 In the last 12 months, was t here a time when you did not have a steady place to sleep or slept in a senior care (including now)? 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 Author [facility] No Gina Booker, RN Note: To be comfortable enough to get a good nights sleep. documented as of this encounter Procedures Procedure Name Priority Date/Time Associated Diagnosis Comments SCAN - RADIOLOGY/IMAGING 12/03/2021 documented in this encounter Results * SCAN - RADIOLOGY/IMAGING (12/03/2021) Anatomical Region Laterality Modality Other us Provider Scanning Final Result documented in this encounter Visit Diagnoses Not on filedocumented in this encounter Additional Health Concerns Infection Onset Date Last Indicated Resolved Time COVID: Suspected 02/13/2024 02/13/2024 02/13/2024 8:53 AM CDT documented as of this encounter Care Teams Certified Alcohol Counselor Relationship Specialty Start Date End Date Maria Esther Padgett MD [address] [facility] [place] [address] PCP - General Family Practice 10/21/21 10/31/23 Linus Self MD [address] [place] [address] PCP - General Internal Medicine 11/01/23 01/24/24 No, Physician PCP - General 01/25/24 02/12/24 Linus Self MD [address] [place] [address] PCP - General Internal Medicine 02/13/24 05/23/24 Juan José Mcbride DO [address] [facility] [place] [address] Consulting Physician Cardiovascular Disease 09/08/19 Patrice Rico NP [address] [facility] [address] [place] [address] Nurse Practitioner Internal Medicine 08/26/23 Joselin Mcbride MD [address] [facility] [address] [place] [address] Consulting Physician Gastroenterology 01/28/24 Eryn Araya, PT Physical Therapist Physical Therapy 03/01/24 documented as of this encounter
--- OUTSIDE RECORDS SUMMARY | 2024-07-20 02:38 | XMS_ITS | Encounter Summary ---
Author Organization [facility] Healthcare Address [address] [place] [address] Care Team Providers Care Metal Building Assembler Name Role Phone Juan José Mcbride DO Unavailable [phone] Maria Esther Padgett MD Primary Care Provider [phone] Patrice Rico APPLICATION PROGRAMMER ANALYST Unavailable [phone] Linus Self MD Primary Care Provider [phone] No, Physician Primary Care Provider [phone] Joselin Mcbride MD Unavailable [phone] Linus Self MD Primary Care Provider [phone] Eryn Araya PT Unavailable Unavailabl e Encounter Details Date Type Department Care Team (Late st Contact Info) Description 09/03/2023 Orders Only [facility] Medical Group [facility] [address] [place] [address] Scanning, Provider Social History Tobacco Use Types Packs/Day Years Used Date Smoking Tobacco: Former Cigarettes 3 16 0 06/28/1956 - 06/27/1972 Cigars Smokeless Tobacco: Never Alcohol Use Standard Drinks/Week Comments No 0 (1 standard drink = 0.6 oz pur e alcohol) [facility] Utilities Answer Date Recorded In the past 12 months has th e electric, gas, oil, or water company threatened to shut off services in your home? No 08/16/2023 Social Connection and Isolat ion Panel [NHANES] Answer Date Recorded In a typical week, how many times do you talk on the phone with family, friends, or neighbors? More than three times a week 08/16/2023 How often do you get togethe r with friends or relatives? Once a week 08/16/2023 How often do you attend chur ch or worship services? More than 4 times per year 08/16/2023 Do you belong to any clubs o r organizations such as orthodoxy groups, unions, fraternal or athletic groups, or school groups? Yes 08/16/2023 How often do you attend meet ings of the clubs or organizations you belong to? 1 to 4 times per year 08/16/2023 Are you , , di vorced, , never , or living with a partner? 08/16/2023 AUDIT-C Answer Date Recorded Q1: How often do you have a drink containing alcohol? Never 08/16/2023 Q2: How many drinks containi ng alcohol do you have on a typical day when you are drinking? Patient does not drink Q3: How often do you have si x or more drinks on one occasion? Never 08/16/2023 Overall Financial Resource Strain (CARDIA) Answe r Date Recorded How hard is it for you to pa y for the very basics like food, housing, medical care, and heating? Not hard at all 08/16/2023 PHQ-2 Answer Date Recorded PHQ-2 Total Score (If total score is 3 or more points, staff should administer the PHQ-9) 0 10/21/2021 Hunger Vital Sign Answer Date Recorded Within the past 12 months, y ou worried that your food would run out before you got the money to buy more. Never true 08/16/19 24 Within the past 12 months, t he food you bought just didn't last and you didn't have money to get more. Never true 08/16/2023 PRAPARE - Transportation Answer Date Re corded In the past 12 months, has l ack of transportation kept you from medical appointments or from getting medications? No 07/29 In the past 12 months, has l ack of transportation kept you from meetings, work, or from getting things needed for daily living? No 08/16/2023 Housing Stability Vital Sign Answer [...] place to sleep or slept in a mcfp (including now)? No 08/16/2023 Personal Safety Answer Date Recorded Have you ever been in or are you currently in a harmful physical or emotional relationship or is someone making you feel afraid or unsafe? 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 Author [facility] Gina Bliss, RN Note: To be comfortable enough to get a good nights sleep. documented as of this encounter Procedures Procedure Name Priority Date/Time Associated Diagnosis Comments PROCEDURE - RESULT 09/03/2023 documented in this encounter Results * PROCEDURE - RESULT (09/03/2023) us Provider Scanning Final Result documented in this encounter Visit Diagnoses Not on filedocumented in this encounter Additional Health Concerns Infection Onset Date Last Indicated Resolved Time COVID: Suspected 02/13/2024 02/13/2024 02/13/2024 8:53 AM CDT documented as of this encounter Care Teams Metal Building Assembler Relationship Specialty Start Date End Date Maria Esther Padgett MD [address] [place] [address] [address] PCP - General Family Practice 10/21/21 10/31/23 Linus Self MD [address] [place] [address] PCP - General Internal Medicine 11/01/23 01/24/24 No, Physician PCP - General 01/25/24 02/12/24 Linus Self MD [address] [place] [address] PCP - General Internal Medicine 02/13/24 05/23/24 Juan José Mcbride DO [address] [facility] [address] [place] [address] Consulting Physician Cardiovascular Disease 09/08/19 Patrice Rico NP [address] [facility] [address] [place] [address] Nurse Practitioner Internal Medicine 08/26/23 Joselin Mcbride MD [address] [facility] [address] [place] [address] Consulting Physician Gastroenterology 01/28/24 Eryn Araya, PT Physical Therapist Physical Therapy 03/01/24 documented as of this encounter
== END 2024-07-13 10:17 | disposition home or self-care (01) ==
LOC: ANHBWCLAB 10:20
PROVIDERS: PCP Nurse Practitioner Adult Health; Visit Provider Nurse Practitioner Adult Health
DX: N40.0 Benign prostatic hyperplasia without lower urinary tract symptoms (principal); E11.9 Type 2 diabetes mellitus without complications; I10 Essential (primary) hypertension; R05.9 Cough, unspecified; Z12.5 Encounter for screening for malignant neoplasm of prostate
CPT/HCPCS: 36415; 71046; 80053; 80061; 82043; 82565; 83036; 84153; 85025; G0103

== ENCOUNTER 2024-08-01 10:38 | Outpatient (CLI) | payer MEDICARE, SELFPAY ==
--- OUTSIDE RECORDS SUMMARY | 2024-08-01 11:12 | XMS_ITS | Continuity of Care Document ---
Author Organization [facility] Address [address] [place] [address] Phone Care Team Providers Care Global Creative Chairman Name Role Phone Harjit BONILLA, Satinder Unavailable [...] Provider Providers Copied on Encounter [email or web address], [address], [place], [place], [address], [place] tel:[phone] SEC [facility] Professional No Information 2 Harjit Rajan. [address] [facility] [facility] [address], [place], [place], [address], [place]. tel:[phone] [email or web address], [address], [place], [place], [id number], tel:[phone] SEC [facility] Professional Cataract evaluation (chief complaint) Type 2 diab with mild nonp rtnop with macular edema, l eyeAge-relat ed nuclear cataract, bilateralCor pipe scar, right eyeDrusen (degenerativ e) of macula, right eye 2 Harjit Rajan. [address] [facility], [facility] [address], [place], [place], [address], [place]. tel:[phone] Specialist: Shira Platt MD, [address] [facility] [address], [place], [address]. tel:[phone] ist: Kaylah Nix MD, [address] [facility] [address], [place], [address]. tel:[phone] ist: Nargis Romero NP, [address] [facility] [address], [place], [address]. tel:[phone] ist: Kaylah Nix MD, [address] [facility] [address], [place], [address]. tel:[phone] Provider: Kenyatta Oneal MD, [address] [facility], [place], [address]. tel:[phone] ng Provider: MD Agus Michelle, [address] [facility], [place], [address]. tel:[phone] Office/outpa tient Visit, [facility], [address], [place], [place], [address], [place] tel:[phone] SEC [facility] Professional Diabetic eye exam (chief complaint) Type 2 diab with mild nonp rtnop with macular edema, l eyeType 2 diab with mild nonp rtnop without mclr edema, r eyeCombined forms of age-related cataract, bilateralAna tomical narrow angle May-0 6-202 2 Timothy OD Mary Jo. [address] [facility], [place], [place], [address], [place]. tel:[phone] Specialist: Shira Platt MD, [address] [facility] [address], [place], [address]. tel:[phone] ist: Kaylah Nix MD, [address] [facility] [address], [place], [address]. tel:[phone] ist: Nargis Romero NP, [address] [facility] [address], [place], [address]. tel:[phone] Provider: Kenyatta Oneal MD, [address] [facility]. [address], [place], [address]. tel:[phone] ng Provider: MD Agus Michelle, [address] [facility], [place], [address]. tel:[phone] [facility] Eye [facility], [address], [place], [place], [address], [place] tel:[phone] SEC [facility] Professional No Information 2 Harjit Rajan. [address] [facility], [address], [place], [place], [address], [place]. tel:[phone] Specialist: Shira Platt MD, [address], [place], [address]. tel:[phone] ist: Kaylah Nix MD, [address], [place], [address]. tel:[phone] ist: Nargis Romero NP, [address] [facility] [address], [place], [address]. tel:[phone] Family History Family Member Type Diagnosis Age At Onset Problem Family history of Diabetes m catalinajulia Payers Payer name Insurance type Covered republican ID Authoriza tion(s) [employer] Medicare CI [id number] Social History Type Description Quantity Date Captured [...] Nix treats his diab. Patient goes to [place] for his glasses. Functional Status Date Functional Assessmen t No Information Instructions Date Instruction Additional Infor abi Impression/Plan Impression/Plan Assessments Type Assessment Date No Information Patient Care Teams Name Effective Dates (start - stop) Status Members No Information
--- OUTSIDE RECORDS SUMMARY | 2024-08-01 11:14 | XMS_ITS | Clinical Summary ---
Author Organization [facility] Address [address] [place] [place] [address] Care Team Providers Care Grit Blaster Name Role Phone Carlitos Shah MD Primary Care Provider [phone] Social History Tobacco Use Types Packs/Day Years [...] Comments Blood Pressure 122/64 05/18/2019 12:00 PM POLYMER SPECIALIST Pulse 70 05/18/2019 12:00 PM POLYMER SPECIALIST Temperature - - Respiratory Rate 18 05/18/2019 12:00 PM POLYMER SPECIALIST Oxygen Saturation 96% 05/18/2019 12:00 PM POLYMER SPECIALIST Inhaled Oxygen Concentration - - Weight 91.6 kg (202 lb) 05/18/2019 12:00 PM POLYMER SPECIALIST Height 160 cm (5' 3 ) 05/18/2019 12:00 PM POLYMER SPECIALIST Body Mass Index 35.78 05/18/2019 12:00 PM POLYMER SPECIALIST Plan of Treatment Health Maintenance Due Date [...] this topic Insurance [employer] MG ELIZABETH MCINTOSH ([id number]) UHC MEDICARE Care Teams Grit Blaster Relationship Specialty Start Date End Date Carlitos Shah MD [address] [place] [address] PCP - General Family Medicine 11/28/20
--- OUTSIDE RECORDS SUMMARY | 2024-08-01 11:15 | XMS_ITS | Encounter Summary ---
Author Organization [facility] Healthcare Address [address] [place] [address] Care Team Providers Care Business Division Chair Name Role Phone Juan José Mcbride DO Unavailable [phone] Maria Esther Padgett MD Primary Care Provider [phone] Patrice Rico INTERNAL COMMUNICATIONS SPECIALIST Unavailable [phone] Linus Self MD Primary Care Provider [phone] No, Physician Primary Care Provider [phone] Joselin Mcbride MD Unavailable [phone] Linus Self MD Primary Care Provider [phone] Eryn Araya PT Unavailable Unavailabl e Encounter Details Date Type Department Care Team (Late st Contact Info) Description 09/03/2023 Orders Only [facility] Medical Group [facility] [address] [place] [address] Scanning, Provider Social History Tobacco Use Types Packs/Day Years Used Date Smoking Tobacco: Former Cigarettes 3 16 0 06/28/1956 - 06/27/1972 Cigars Smokeless Tobacco: Never Alcohol Use Standard Drinks/Week Comments No 0 (1 standard drink = 0.6 oz pur e alcohol) [facility] Utilities Answer Date Recorded In the [...] often do you attend chur ch or adventism services? More than 4 times per year 08/16/2023 Do you belong to any clubs o r organizations such as sabianist groups, unions, fraternal or athletic groups, or [...] place to sleep or slept in a assisted (including now)? No 08/16/2023 Personal Safety Answer Date Recorded Have you ever been in or are you currently in a harmful physical or emotional relationship or is someone making you feel afraid or unsafe? 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 Gender Identity Not on file Sexual Orientation [...] documented as of this encounter Care Teams Business Division Chair Relationship Specialty Start Date End Date Maria Esther Padgett MD [address] [place] [address] [address] PCP - General Family Practice 10/21/21 10/31/23 Linus Self MD [address] [place] [address] PCP - General Internal Medicine 11/01/23 01/24/24 No, Physician PCP - General 01/25/24 02/12/24 Linus Self MD [address] [place] [address] PCP - General Internal Medicine 02/13/24 05/23/24 Juan José Mcbride DO [address] [facility] [address] [place] [address] Consulting Physician Cardiovascular Disease 09/08/19 Patrice Rico NP [address] [facility] [address] [place] [address] Nurse Practitioner Internal Medicine 08/26/23 Joselin Mcbride MD [address] [facility] [address] [place] [address] Consulting Physician Gastroenterology 01/28/24 Eryn Araya, PT Physical Therapist Physical Therapy 03/01/24 documented as of this encounter
--- OUTSIDE RECORDS SUMMARY | 2024-08-01 11:15 | XMS_ITS | Clinical Summary ---
Author Organization [facility] Address [address] [place] [address] Phone Care Team Providers Care Manager Of Housekeeping Name Role Phone Maria Esther Padgett MD [...] to complete this topic Insurance MEDICARE C [facility] Care Teams Manager Of Housekeeping Relationship Specialty Start Date End Date Maria Esther Padgett MD PCP - General Family Medicine 02/10/23
--- OUTSIDE RECORDS SUMMARY | 2024-08-01 11:15 | XMS_ITS | CONTINUITY OF CARE DOCUMENT ---
Author Name yann, yann Address Unknown Organization [facility] Address [address] [place] [address] Phone [phone] Care Team Providers Care Frog Shaker Name Role Phone Chuy BONILLA, Jean Pierre Unavailable [phone] KATIA BONILLA MENG Unavailable [phone] NIKO ORR MD Unavailable PROBLEMS Condition Status Date Provider Notes CHEST PAIN-TYPE TO BE DETERMINED completed - Berenice Gay RN DIABETES MELLITUS active Berenice Gay R N CAD active Berenice Gay RN HTN ESSENTIAL active Berenice Gay RN HYPERLIPIDEMIA active Berenice Gay RN ENCOUNTERS Date Type Provider Location Encounter Diag nosis - In-person encounter Office Visit Jean Pierre Vera MD [facility] HYPERLIPIDEMIACHEST PAIN-TYPE TO BE DETERMINED - In-person encounter Office Visit Laina Merchant MD [facility] - In-person encounter Office Visit Jean Pierre Vera MD [facility] - In-person encounter Office Visit Jean Pierre Vera MD [facility] Office HYPERLIPIDEMIAHTN ESSENTIALCADDIABETES MELLITUS VITAL SIGNS Date Observation Value Provider Body Mass Index (Ratio) 35.42 kg/m2 Rosa Gay RN blood pressure, diastolic 70 mm[Hg] Kr isty Chandler blood pressure, systolic 132 mm[Hg] Kri sty Chandler blood pressure, resting No Buster ty [place] blood pressure, cuff size regular Kr isty [place] pulse rate 77 /min Jocelyn Arteaga respiratory [...] pressure, systolic, right arm 165 m m[Hg] Madison Villagomez blood pressure, diastolic 82 mm[Hg] Na [...] Ivon Sheridan oxygen saturation, oximetry 97 % Ivno Sheridan respiratory rate E&M 17 /min Ivon [...] ORAL TABLET active 1 tablet in PM Berenice Gay RN LISINOPRIL 20 MG ORAL TABLET [...] Payer name Policy type / Coverage type [place] [employer] alliance party ID [employer] Other [id number] ADVANCE DIRECTIVES Name Date DISCUSSED - NO [...] motion abnormality identified. Normal LVEF 58%. - [facility] (08/26/2000) C ardiac Cath: Single-vessel coronary artery [...] 1 tbalet daily O rders: E KG (CPT-29421) BP today: 165/82 P rior BP: 130/80 [...] Name Provider Procedure Notes S imelda SNOMED-CT: [id number] Current Medications Documented Jean Pierre Vera MD completed EKG Jean Pierre Vera MD completed
--- OUTSIDE RECORDS SUMMARY | 2024-08-01 11:15 | XMS_ITS | Encounter Summary ---
Author Organization [facility] Address [address] [place] [address] Phone Care Team Providers Care Internet Sales Manager Name Role Phone Juan José Mcbride DO Unavailable [phone] Maria Esther Padgett MD Primary Care Provider [phone] Patrice Rico MOTORCYCLE BUILDER Unavailable [phone] Linus Self MD Primary Care Provider [phone] No, Physician Primary Care Provider [phone] Joselin Mcbride MD Unavailable [phone] Linus Self MD Primary Care Provider [phone] Eryn Araya PT Unavailable Unavailabl e Encounter Details Date Type Department Care Team (Late st Contact Info) Description 12/03/2021 Orders Only [facility] [address] [place] [address] Scanning, Provider Social History Tobacco [...] or relatives? Twice a week 2021 Attends [employer] Not on file 01/23 Active Member [...] place to sleep or slept in a alf (including now)? 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 Gender Identity Not on file Sexual Orientation [...] documented as of this encounter Care Teams Internet Sales Manager Relationship Specialty Start Date End Date Maria Esther Padgett MD [address] [facility] [place] [address] PCP - General Family Practice 10/21/21 10/31/23 Linus Self MD [address] [place] [address] PCP - General Internal Medicine 11/01/23 01/24/24 No, Physician PCP - General 01/25/24 02/12/24 Linus Self MD [address] [place] [address] PCP - General Internal Medicine 02/13/24 05/23/24 Juan José Mcbride DO [address] [facility] [place] [address] Consulting Physician Cardiovascular Disease 09/08/19 Patrice Rico NP [address] [facility] [address] [place] [address] Nurse Practitioner Internal Medicine 08/26/23 Joselin Mcbride MD [address] [facility] [address] [place] [address] Consulting Physician Gastroenterology 01/28/24 Eryn Araya, PT Physical Therapist Physical Therapy 03/01/24 documented as of this encounter
--- OUTSIDE RECORDS SUMMARY | 2024-08-01 11:15 | XMS_ITS | Referral Summary ---
Author Organization [facility] Address [address] [place] [address] Care Team Providers Care Inset Cutter Name Role Phone Jacky Patrice Moraes NP Unavailable [phone] Joselin Mcbride MD Unavailable [phone] Eryn Araya PT Unavailable Unavailabl e Encounters Date Type Department Care Team Description 05/24/2024 Telephone [facility] [address] [place] [address] Maria Negrete MD Missed/ NO show for Urology 05/17/2024 Telephone [facility] [address] [place] [address] [address] [place] [address] Kimberly Peña CLT 05/17/2024 3:22 PM AVIATION PROJECT ENGINEER - 05/17/2024 11:59 PM AVIATION PROJECT ENGINEER Hospital Encounter [facility] [address] [place] [address] Elevated prostate specific antigen (PSA) Discharge Disposition: Discharge to home or self care 05/05/2024 Orders Only [facility] [address] [place] [address] [address] [place] [address] Angel Combs MD Elevated prostate specific antigen (PSA) (Primary Dx) 05/03/2024 Telephone [facility] [address] [place] [address] Cynthia Velez MA Procedure (PCI) 05/01/2024 Telephone [facility] [address] [place] [address] Maria Negrete MD Gluose Meter 05/01/2024 Telephone [facility] [address] [place] [address] Angel Combs MD from Last 3 Months Allergies Active Allergy Reactions Criticality Noted Date Comments Clopidogrel Unknown 10/04/2013 diarrhea Hydrochlorothiazide Dizziness Low Reaction: lightheadedness, Iodine Rash Medium 07/07/2013 Medications pen needle, diabetic 32 gauge x 09/10 needle Use one /day for insulin pen 100 each 3 08/12/19 21 Active alcohol swabs pads, medicated Use before injecting insulin or doing finger sticks to clean area, 3 per day DX E11.65, Z79.4 300 each 3 03/19/20 21 Active cholecalciferol (VITAMIN D-3) 2000 unit capsule 1 capsule (2,000 Units total) real estate portfolio manager before breakfast Active lancets misc Use to test blood glucose 2 times each day DX E11.65, Z79.4 200 each 3 11/12/19 22 Active acetaminophen (TYLENOL) 325 mg tablet Take 2 tablets (650 mg total) by mouth every 6 (six) hours as needed for pain Active pantoprazole DR (PROTONIX) 40 mg EC tabletIndications:Ga strointestinal hemorrhage, unspecified gastrointestinal hemorrhage type Take 1 tablet (40 mg total) by mouth 2 (two) times a day 30 tablet 5 11/01/19 24 Active furosemide (LASIX) 20 mg tablet Take 1 tablet (20 mg total) by mouth real estate portfolio manager before breakfast 30 tablet 11 03/10/20 24 025 Active ticagrelor (BRILINTA) 90 mg tablet Take 1 tablet (90 mg total) by mouth 2 (two) times a day 180 tablet 3 03/13/20 24 025 Active aspirin 81 mg enteric coated tablet Take 1 tablet (81 mg total) by mouth daily 30 tablet 03/14/20 24 Active atorvastatin (LIPITOR) 40 mg tabletIndications:Hy perlipidemia associated with type 2 diabetes mellitus (HCC) Take 1 tablet (40 mg total) by mouth daily 90 tablet 3 04/03/20 24 025 Active isosorbide mononitrate ER (IMDUR) 30 mg 24 hr tablet Take 1 tablet (30 mg total) by mouth daily 90 tablet 3 04/03/20 24 Active metoprolol tartrate (LOPRESSOR) 25 mg immediate release tablet Take 0.5 tablets (12.5 mg total) by mouth 2 (two) times a day 90 tablet 3 04/03/20 24 Active ferrous sulfate 325 mg (65 mg of elemental iron) tabletIndications:Ga strointestinal hemorrhage, unspecified gastrointestinal hemorrhage type TAKE 1 TABLET BY MOUTH EVERY OTHER DAY 45 tablet 1 04/28/20 24 Active blood-glucose meter kitIndications:Type 2 diabetes mellitus with other circulatory complication, with long-term current use of insulin ([facility]) Use to test blood glucose 2 times each day DX E11.65, Z79.4 1 kit 05/01/20 Active blood glucose diagnostic (Onset TechnologyTouch Verio test strips) stripIndications:Typ e 2 diabetes mellitus with other circulatory complication, with long-term current use of insulin ([facility]),Type 2 diabetes mellitus with hyperglycemia, with long-term current use of insulin ([facility]) USE TO TEST BLOOD SUGAR TWICE DAILY DIRECTED BY PHYSICIAN 200 each 3 06/23/20 24 Active lancets (OneTouch Delica Plus Lancet) 33 gauge miscIndications:Type 2 diabetes mellitus with hyperglycemia, with long-term current use of insulin ([facility]),Type 2 diabetes mellitus with hyperglycemia, unspecified whether halfway insulin use ([facility]) USE TO TEST BLOOD SUGAR TWICE DAILY DIRECTED BY PHYSICIAN 100 each 3 06/23/20 24 Active glimepiride (AMARYL) 2 mg tabletIndications:Ty pe 2 diabetes mellitus with hyperglycemia, with long-term current use of insulin ([facility]) TAKE ONE (1) TABLET BY MOUTH TWICE DAILY AT LUNCH AND DINNER 120 tablet 2 06/26/20 Active Active Problems Problem Noted Date Diagnosed Date Coronary artery disease invo lving osage coronary artery of osage heart 03/14/2024 Class 1 obesity due to [...] kidney disease) stage 4, GFR 15-29 ml/min (CMS/[facility]) 03/08/2024 Overview (03/12/2024): Progressed to stage 4 [...] that was prescibed. We advised him to moss picker and start taking the medications. We ordered a follow-up CBC and BMP. Lab Results Component Value Date WBC 10.0 (H) 08/18/2023 HGB 8.5 (L) 08/18/2023 HCT 28.4 (L) 08/18/2023 MCV 85.5 08/18/2023 LABPLAT 252 08/18/2023 Assessment & Plan (08/29/2023 6:18 PM AVIATION PROJECT ENGINEER): See recent hospital details for GI bleed [...] disease. I plan to re- evaluate his gkoq-tn-fzxcjbwy disease with carotid ultrasound. Coronary artery disease invo lving osage heart without angina pectoris 06/05/2019 Overview (10/31/2023): >>OVERVIEW FOR S/P RIGHT CORONARY ARTERY (RCA) STENT PLACEMENT WRITTEN ON 10/31/2023 2:55 PM BY MARIA NEGRETE MD Mid and distal right coronary artery with deployment of overlapping 2.75 and 3.0 mm JASMIN. >>OVERVIEW FOR NSTEMI (NON-ST ELEVATED MYOCARDIAL INFARCTION) (CMS/HCC) ([facility]) WRITTEN ON 10/31/2023 2:59 PM BY MARIA [...] not rinsing correctly. Also, they stated that [facility] Paid for the eucrisa but sent them [...] behavioral disturbance 02/10/20 18 Overview (10/31/2023): Per RESOLUTION EXPERT office note. Assessment & Plan (02/22/2024 10:27 [...] I cannot find any notes from a page designer since 2012. He saw Dr. Vera at [...] arrange for consultation with current providers at [facility]. Assessment & Plan (10/10/2018 3:21 PM [...] Stable. Assessment & Plan (08/16/2018 9:33 AM AVIATION PROJECT ENGINEER): Lipid abnormalities are improving with treatment. Pharmacotherapy as ordered. Lipids will be reassessed in 6 months. Assessment & Plan (05/16/2018 8:47 PM AVIATION PROJECT ENGINEER): Lipid abnormalities are improving with treatment. Pharmacotherapy [...] disease due to type 2 diabetes mellitus ([facility]) 03/29/2014 Overview (10/02/2016): Hypertension Assessment & Plan [...] annual. Assessment & Plan (08/29/2023 6:16 PM AVIATION PROJECT ENGINEER): BP stable in office today on current therapy. Meds were changed during recent hospital visit due to elevated Country Sales Manager. No acute findings on exam. Recent hospital [...] management. Assessment & Plan (08/16/2018 9:32 AM AVIATION PROJECT ENGINEER): Hypertension is worsening. Dietary sodium restriction. Regular aerobic exercise. Medication changes per orders. Blood pressure will be reassessed in 4 weeks Add toprol xl 25mg daily. F/u 1 month for blood pressure check. Repeat cmp in 1 month. Assessment & Plan (05/16/2018 8:47 PM AVIATION PROJECT ENGINEER): Hypertension is improving with treatment. Continue current [...] labs. Assessment & Plan (08/29/2023 6:16 PM AVIATION PROJECT ENGINEER): Non-compliant, recent Hb A1c while in hospital [...] basis. Assessment & Plan (05/06/2021 3:08 PM AVIATION PROJECT ENGINEER): Diagnosed in . Started insulin November Control [...] Plan (12/19/2019 9:29 AM CDT): Diagnosed in . Started insulin November Control : improved control [...] referral. Will refer to urology Diabetic polyneuropathy ([facility]) 02/06/2013 Assessment & Plan (11/26/2017 4:40 PM CDT): Hx of polyneuropathy. Will start with referral to neurology. Consider referral to pain management. Increase gabapentin to 300mg TID x 3-7 days, then increase to 300 am, noon and 600mg at bedtime. Diverticulitis Resolved Problems Problem Noted Date Diagnosed Date Resolved Date Unstable angina pectoris ([facility]) 08/15/2023 08/25/2023 Rectal bleeding 08/15/2023 08/25/2023 Chronic [...] Arriaga. Assessment & Plan (08/29/2023 6:15 PM AVIATION PROJECT ENGINEER): See hospital details above, testing and labs [...] hydrated. Assessment & Plan (06/15/2019 9:05 PM AVIATION PROJECT ENGINEER): Has home health for a few more days. Is trying to increase activity slowly. Overall doing well. Feeling bloated. Will check labs. Has f/u with cardiology scheduled. Acute renal failure superimp osed on stage 3 chronic kidney disease 06/05/2019 10/31/2023 Overview (10/31/2023): At time of acute OH due to RCA stenosis. Pityriasis rosea 11/03/2018 [...] Needs Essence referral for upcoming appointment to signal manager. Atherosclerosis of coronary artery 07/04/2013 07/21/2019 Assessment & Plan (06/15/2019 9:08 PM AVIATION PROJECT ENGINEER): Will check BNP today. C/o of feeling [...] drink = 0.6 oz pur e alcohol) [facility] Utilities Answer Date Recorded In the past 12 months has e [employer], gas, oil, or water [employer] threatened to shut off services in your [...] often do you attend chur ch or temple services? More than 4 times per year 02/16/2024 Do you belong to any clubs o r organizations such as evangelical groups, unions, fraternal or athletic groups, or [...] place to sleep or slept in a fdc (including now)? No 08/16/2023 Housing Stability Vital [...] were you homeless or living in a fdc (including now)? No 02/16/2024 Personal Safety Answer Date Recorded Have you ever been in or are you currently in a harmful physical or emotional relationship or is someone making you feel afraid or unsafe? 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 Author [facility] No StGina clarke RN Note: To be comfortable enough to get a good nights sleep. 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 Type Area Model Home Sales Greeter Device Identifier Shelf Expiration Date Model / Serial / Lot Daig An/[employer] [id number] Angio-Seal Evolution 6fr .035in Guidewire Bypass Tube Suture - [id number] Implanted:Qty: 1 on 06/06/2019 by Zay Sheth MD at [facility] Other - see comments [employer]ig An/[employer] 01/26/2020 [id number] / / [id number] [place] [employer] [id number] Synergy 2.75mm 24mm 144cm Radiopaque 1 Access Port Inflation - [id number] Implanted:Qty: 1 on 06/06/2019 by Zay Sheth MD at [facility] Stent [place] [employer] An 02/21/2021 [id number] / / [id number] [employer] [id number] System Coronary Stent Xience Jayda Everolimus L15 Mm Od3 Mm Rapid Exchange - [id number] Implanted:Qty: 1 on 06/06/2019 by Zay Sheth MD at [facility] Stent [employer] 03/09/2020 [id number] / / [id number] Xience Stent Promus Stent Heart Procedures Procedure Name Priority Date/Time Associated Diagnosis Comments CT ABDOMEN PELVIS WO CONTRAST Schedule CHRIS, Read Routine (Patient lives out of area) 05/17/2024 3:36 PM AVIATION PROJECT ENGINEER Elevated prostate specific antigen (PSA) EGFR Routine [...] Abdomen Pelvis WO Contrast (05/17/2024 3:36 PM AVIATION PROJECT ENGINEER) Anatomical Region Laterality Modality Body N/A Computed Tomogra phy 05/18/2024 2:40 AM AVIATION PROJECT ENGINEER Narrative 05/18/2024 2:45 AM AVIATION PROJECT ENGINEER EXAM DESCRIPTION: ?? CT ABDOMEN PELVIS WO [...] AM T: ??05/18/2024 2:45 AM Report ID: [id number] Reading Location: ??[id number] Procedure Note Jamal Delgado MD - 05/18/2024 [...] Jamal Delgado M.D. KH: ROSY Report ID: [id number] Reading Location: [place] [address] Angel Combs MD IMG CT PROCEDURES Final [...] was last reviewed 2021. Testing performed by: [facility], [address], [place], [address] Blood 03/28/2024 10:1 5 AM CDT 03/28/2024 11:45 AM CDT Angel Combs MD LAB BLOOD ORDERABLES Nkechi l Result Performing Organization Address City/[facility]/ZIP Co de Phone Number [facility] [address] Department [place] [address] * (ABNORMAL) Hemoglobin A1c (03/13/2024 1:23 PM CDT) Hgb A1C 7.0(H) 4.0 - 5.6 % Comment:Testing performed by : [address] [address] Estimated Average Glucose 154 mg/dL [facility] Comment: The ADA recommends reporting an estimated Average Glucose (eAG) with all Hemoglobin A1c results using the equation derived from a study of 507 normal and diabetic adults. ??Minority populations were underrepresented and children were not included. ?? (Diabetes Care 31:2256-2725, 2008). ??The eAG is not equivalent to a fasting glucose. Testing performed by: [facility], [address] [place] [address]., [address] Blood 03/13/2024 1:23 PM CDT 03/13/2024 9:00 PM CDT Maria Negrete MD LAB BLOOD ORDERABLES Final Re sult [facility] [address] [facility] [place] [address] * (ABNORMAL) Diabetic Eye Exam (02/19/2022) Priyanka Provider HEALTH MAINTENANCE Final Result * (ABNORMAL) Albumin Creatinine Ratio, Urine (10/28/2021 10:47 AM CDT) Albumin Ur 1,475.8 mg/L [facility] JIMENEZ Comment: Interpretive Data No reference range established. Current interpretive data was last revised 2018. Creatinine Ur 185.1 mg/dL [facility] JIMENEZ Comment: Interpretive Data No reference range established. Current interpretive data was last revised 2018. Albumin Creatinine Ratio, Ur 797(H) 1 - 29 mg/g [facility] JIMENEZ Urine 10/28/2021 10:4 7 AM CDT 10/28/2021 5:31 PM CDT us Maria Esther Padgett MD LAB URINE ORDERABLES Final R esult [facility] [address] Department [place] [address] * (ABNORMAL) Lipid panel (10/28/2021 10:47 AM CDT) Cholesterol 121 30 - 199 mg/dL [facility] JIMENEZ Comment: Interpretive Data Ages [...] on 2018. Triglycerides 132 <=149 mg/dL [facility] JIMENEZ Comment: Interpretive Data Ages [...] 2018. LDL, calculated 63 <=129 mg/dL [facility] Comment: Interpretive Data Ages < [...] BLOOD ORDERABLES Final R esult [facility]IM[facility] [address] Department [place] [address] from Last 3 Months or Most Recently Relevant to Health Maintenance Insurance MEDICARE SOLUTIONS MEDICARE SOLUTIONS MEDICARE SOLUTIONS Advance Directives For more information, please contact: [phone] Documents on File Type Date Recorded Patient Train Clerk Expl anation ADVANCE DIRECTIVE 01/31/2024 10:37 AM Power of Child Support Agent-Medical * LIMITED - No CPR (Latest Code [...] 1:59 AM 01/27/2024 3:04 PM Care Teams Inset Cutter Relationship Specialty Start Date End Date Patrice Rico NP [address] [place] [address] [address] [place] [address] Nurse Practitioner Internal Medicine 08/26/23 Joselin Mcbride MD [address] [place] [address] [address] [place] [address] Consulting Physician Gastroenterology 01/28/24 Eryn Araya, PT Physical Therapist Physical Therapy 03/01/24
--- OUTSIDE RECORDS SUMMARY | 2024-08-01 11:15 | XMS_ITS | Clinical Summary ---
Author Organization [facility] Address [address] [place] [address] Care Team Providers Care Second Language Tutor Name Role Phone Patrice Rico NP Unavailable [phone] Joselin Mcbride MD Unavailable [phone] Eryn Araya PT Unavailable Unavailabl e Allergies Active Allergy Reactions Criticality Noted Date Comments Clopidogrel Unknown 10/04/2013 diarrhea Hydrochlorothiazide Dizziness Low Reaction: lightheadedness, Iodine Rash Medium 07/07/2013 Medications pen needle, diabetic 32 gauge x /16 needle Use one /day for insulin pen 100 each 3 08/12/19 21 Active alcohol swabs pads, medicated Use before injecting insulin or doing finger sticks to clean area, 3 per day DX E11.65, Z79.4 300 each 3 03/19/20 21 Active cholecalciferol (VITAMIN D-3) 2000 unit capsule 1 capsule (2,000 Units total) 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 before breakfast Active lancets misc Use to [...] 1 tablet (20 mg total) by mouth 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 before breakfast 30 tablet 11 03/10/20 24 [...] 90 tablet 3 04/03/20 24 025 Active metoprolol tartrate (LOPRESSOR) 25 mg immediate release tablet Take 0.5 tablets (12.5 mg total) by mouth 2 (two) times a day 90 tablet 3 04/03/20 24 025 Active ferrous sulfate 325 mg (65 mg of elemental iron) tabletIndications:Ga strointestinal hemorrhage, unspecified gastrointestinal hemorrhage type TAKE 1 TABLET BY MOUTH EVERY OTHER DAY 45 tablet 1 04/28/20 24 Active blood-glucose meter kitIndications:Type 2 diabetes mellitus with other circulatory complication, with long-term current use of insulin ([facility]) Use to test blood glucose 2 times each day DX E11.65, Z79.4 1 kit 05/01/20 24 Active blood glucose diagnostic (RECEPTA biopharmaTouch Verio test strips) stripIndications:Typ e 2 diabetes mellitus with other circulatory complication, with long-term current use of insulin ([facility]),Type 2 diabetes mellitus with hyperglycemia, with long-term current use of insulin ([facility]) USE TO TEST BLOOD SUGAR TWICE DAILY DIRECTED BY PHYSICIAN 200 each 3 06/23/20 24 Active lancets (OneTouch Delica Plus Lancet) 33 gauge miscIndications:Type 2 diabetes mellitus with hyperglycemia, with long-term current use of insulin ([facility]),Type 2 diabetes mellitus with hyperglycemia, unspecified whether senior living insulin use ([facility]) USE TO TEST BLOOD SUGAR TWICE DAILY DIRECTED BY PHYSICIAN 100 each 3 06/23/20 24 Active glimepiride (AMARYL) 2 mg tabletIndications:Ty pe 2 diabetes mellitus with hyperglycemia, with long-term current use of insulin ([facility]) TAKE ONE (1) TABLET BY MOUTH TWICE DAILY AT LUNCH AND DINNER 120 tablet 2 06/26/20 24 Active Active Problems Problem Noted Date Diagnosed Date Coronary artery disease invo lving [place] coronary artery of [place] heart 03/14/2024 Class 1 obesity due to [...] kidney disease) stage 4, GFR 15-29 ml/min ([facility]) 03/08/2024 Overview (03/12/2024): Progressed to stage [...] 08/15/2023 Overview (10/31/2023): Office follow-up by CULLEN Arriaag. >>OVERVIEW FOR ANEMIA, BLOOD LOSS WRITTEN ON [...] was prescibed. 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 We ordered a follow-up CBC and BMP. Lab Results Component Value Date WBC 10.0 (H) 08/18/2023 HGB 8.5 (L) 08/18/2023 HCT 28.4 (L) 08/18/2023 MCV 85.5 08/18/2023 LABPLAT 252 08/18/2023 Assessment & Plan (08/29/2023 6:18 PM SMALL ENGINE TRAINER): See recent hospital details for GI bleed [...] disease. I plan to re- evaluate his ohyt-vn-ojpwbthl disease with carotid ultrasound. Coronary artery disease invo lving [place] heart without angina pectoris 06/05/2019 Overview (10/31/2023): >>OVERVIEW FOR S/P RIGHT CORONARY ARTERY (RCA) STENT PLACEMENT WRITTEN ON 10/31/2023 2:55 PM BY MARIA NEGRETE MD Mid and distal right coronary artery with deployment of overlapping 2.75 and 3.0 mm JASMIN. >>OVERVIEW FOR NSTEMI (NON-ST ELEVATED MYOCARDIAL INFARCTION) ([facility]) ([facility]) WRITTEN ON 10/31/2023 2:59 PM BY [...] not rinsing correctly. Also, they stated that [facility] Paid for the eucrisa but sent [...] behavioral disturbance 02/10/20 18 Overview (10/31/2023): Per SENIOR CLERK office note. 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 He saw Dr. Vera at [...] arrange for consultation with current providers at [facility]. Assessment & Plan (10/10/2018 3:21 PM CDT): [...] Stable. Assessment & Plan (08/16/2018 9:33 AM SMALL ENGINE TRAINER): Lipid abnormalities are improving with treatment. Pharmacotherapy as ordered. Lipids will be reassessed in 6 months. Assessment & Plan (05/16/2018 8:47 PM SMALL ENGINE TRAINER): Lipid abnormalities are improving with treatment. Pharmacotherapy [...] disease due to type 2 diabetes mellitus ([facility]) 03/29/2014 Overview (10/02/2016): Hypertension Assessment & [...] annual. Assessment & Plan (08/29/2023 6:16 PM SMALL ENGINE TRAINER): BP stable in office today on current therapy. Meds were changed during recent hospital visit due to elevated Program Schedule Clerk. No acute findings on exam. Recent hospital [...] management. Assessment & Plan (08/16/2018 9:32 AM SMALL ENGINE TRAINER): Hypertension is worsening. Dietary sodium restriction. Regular aerobic exercise. Medication changes per orders. Blood pressure will be reassessed in 4 weeks Add toprol xl 25mg daily. F/u 1 month for blood pressure check. Repeat cmp in 1 month. Assessment & Plan (05/16/2018 8:47 PM SMALL ENGINE TRAINER): Hypertension is improving with treatment. Continue current [...] labs. Assessment & Plan (08/29/2023 6:16 PM SMALL ENGINE TRAINER): Non-compliant, recent Hb A1c while in hospital [...] basis. Assessment & Plan (05/06/2021 3:08 PM SMALL ENGINE TRAINER): Diagnosed in . Started insulin November Control [...] referral. Will refer to urology Diabetic polyneuropathy ([facility]) 02/06/2013 Assessment & Plan (11/26/2017 4:40 PM CDT): Hx of polyneuropathy. Will start with referral to neurology. Consider referral to pain management. Increase gabapentin to 300mg TID x 3-7 days, then increase to 300 am, noon and 600mg at bedtime. Diverticulitis Resolved Problems Problem Noted Date Diagnosed Date Resolved Date Unstable angina pectoris ([facility]) 08/15/2023 08/25/2023 Rectal bleeding 08/15/2023 08/25/2023 [...] Arriaga. Assessment & Plan (08/29/2023 6:15 PM SMALL ENGINE TRAINER): See hospital details above, testing and labs [...] hydrated. Assessment & Plan (06/15/2019 9:05 PM SMALL ENGINE TRAINER): Has home health for a few more days. Is trying to increase activity slowly. Overall doing well. Feeling bloated. Will check labs. Has f/u with cardiology scheduled. Acute renal failure superimp osed on stage 3 chronic kidney disease 06/05/2019 10/31/2023 Overview (10/31/2023): At time of acute NV due to RCA stenosis. Pityriasis rosea 11/03/2018 [...] Needs Essence referral for upcoming appointment to pastry finisher. Atherosclerosis of coronary artery 07/04/2013 07/21/2019 Assessment & Plan (06/15/2019 9:08 PM SMALL ENGINE TRAINER): Will check BNP today. C/o of feeling [...] Type Department Care Team Description 05/24/[address] [facility] [address] [facility] [address] [place] [address] Maria Negrete MD Missed/ NO show for Urology 05/17/2024 3:22 PM SMALL ENGINE TRAINER - 05/17/2024 11:59 PM SMALL ENGINE TRAINER Hospital Encounter [facility] [address] [place] [address] Elevated prostate specific antigen (PSA) Discharge Disposition: Discharge to home or self care 05/17/2024 Telephone [facility] Oncology [address] [place] [address] Medical Office [facility] [address] [place] [id number] Kimberly Peña CLT 05/05/2024 Orders Only [facility] [address] [place] [address] Medical Office [facility] [address] [place] [id number] Angel Combs MD Elevated prostate specific antigen (PSA) (Primary Dx) 05/03/2024 Telephone [facility] [address] [facility] [address] [place] [address] Cynthia Velez MA Procedure (PCI) 05/01/[address] [facility] [address] [place] [address] Maria Negrete MD Gluose Meter 05/01/2024 Telephone [facility] [address] [place] [address] Angel Combs MD from Last 3 Months Immunizations Name [...] Arriaga. NSTEMI (non-ST elevated myoc ardial infarction) ([facility]) ([facility]) 06/05/2019 Stent in RCA, details lack ing. Acute renal failure superimp osed on stage 3 chronic kidney disease ([facility]) 06/05/2019 At time of acute NV due to RCA stenosis. Pityriasis rosea 11/03/2018 [...] drink = 0.6 oz pur e alcohol) [facility] Utilities Answer Date Recorded In the past 12 months has e electric, gas, oil, or water company [...] often do you attend chur ch or baptism services? More than 4 times per year 02/16/2024 Do you belong to any clubs o r organizations such as synagogue groups, unions, fraternal or athletic groups, or [...] place to sleep or slept in a prison (including now)? No 08/16/2023 Housing Stability Vital Sign Answer Sohail e Recorded In the last 12 months, was t here a time when you were not able to pay the mortgage or rent on time? No 02/16/2024 In the past 12 months, how m any times have you moved where you were living? 0 02/16/2024 At any time in the past 12 m [facility], were you homeless or living in a prison (including now)? No 02/16/2024 Personal Safety Answer Date Recorded Have you ever been in or are you currently in a harmful physical or emotional relationship or is someone making you feel afraid or unsafe? 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 [employer] Not on fi le Not on file [...] Vaccine (#1) 2024 Hemoglobin A1C 09/10/2024 03/13/2024, 08/0 06/2023, 08/15/2023, Additional history exists Depression Screening 03/13/2025 03/13/2024, 11/01/2023, 10/21/2021, Additional history exists Fall Risk Assessment 03/13/2025 03/13/2024, 02/17/2024, 11/01/2023, Additional history exists Foot Exam 03/13/2025 03/13/2024, 11/27, 12/21/2019, Additional history exists Well Visit 65+ 03/13/2025 03/13/2024, 09/27, 12/23/2020, Additional history exists eGFR 03/28/2025 03/28/2024, 0902/2024, 02/17/2024, Additional history exists Abdominal Aortic Aneurysm (A AA) Screen Completed 05/17/2024, 01/26/2024, 08/15/2023, Additional history exists DTaP/Tdap/Td Vaccine Discontinued Pneumococcal vaccine 65+ Discontinued Goals Goal Patient Goal Type Associated Problems Recent Progress Patient-Stated? Author [facility] No Gina Booker, RN Note: To be comfortable enough to get a good nights sleep. 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 Type Area Film Processor Device Identifier Shelf Expiration Date Model / Serial / Lot Daig An/[employer] [id number] Angio-Seal Evolution 6fr .035in Guidewire Bypass Tube Suture - [id number] Implanted:Qty: 1 on 06/06/2019 by Zay Sheth MD at [facility] Other - see comments [employer]ig [employer] 01/26/2020 [id number] / / [id number] BuildDirect An [id number] Synergy 2.75mm 24mm 144cm Radiopaque 1 Access Port Inflation - [id number] Implanted:Qty: 1 on 06/06/2019 by Zay Sheth MD at [facility] Stent [employer] An 02/21/2021 [id number] / / [id number] P[employer] [id number] System Coronary Stent Xience Jayda Everolimus L15 Mm Od3 Mm Rapid Exchange - [id number] Implanted:Qty: 1 on 06/06/2019 by Zay Sheth MD at [facility] Stent [employer] 03/09/2020 [id number] / / [id number] Xience Stent Promus Stent Heart Procedures Procedure Name Priority Date/Time Associated Diagnosis Comments CT ABDOMEN PELVIS WO CONTRAST Schedule CHRIS, Read Routine (Patient lives out of area) 05/17/2024 3:36 PM SMALL ENGINE TRAINER Elevated prostate specific antigen (PSA) EGFR Routine [...] Abdomen Pelvis WO Contrast (05/17/2024 3:36 PM SMALL ENGINE TRAINER) Anatomical Region Laterality Modality Body N/A Computed Tomogra phy 05/18/2024 2:40 AM SMALL ENGINE TRAINER Narrative 05/18/2024 2:45 AM SMALL ENGINE TRAINER EXAM DESCRIPTION: ?? CT ABDOMEN PELVIS WO [...] 2:45 AM - Electronically signed by ??Jamal GALLEGOS: ROSY D: ??05/18/2024 2:45 AM T: ??05/18/2024 2:45 AM Report ID: [id number] Reading Location: ??[id number] Procedure Note Jamal Delgado MD - 05/18/2024 [...] Electronically signed by Jamal Delgado M.D. KH: ROYS Report ID: [id number] Reading Location: [id number] us Angel Combs MD IMG CT PROCEDURES [...] was last reviewed 2021. Testing performed by: [facility], [address] [facility], [place], [address] Blood 03/28/2024 10:1 5 AM CDT 03/28/2024 11:45 AM CDT us Angel Combs MD LAB BLOOD ORDERABLES Nkechi snider Result [facility] [address] [facility] Department [place] [address] * (ABNORMAL) Hemoglobin A1c (03/13/2024 1:23 PM CDT) Hgb A1C 7.0(H) 4.0 - 5.6 % Comment:Testing performed by : [facility], [address] [place] [address]., [address] Estimated Average Glucose 154 mg/dL [facility] Comment: The ADA recommends reporting an estimated Average Glucose (eAG) with all Hemoglobin A1c results using the equation derived from a study of 507 normal and diabetic adults. ??Minority populations were underrepresented and children were not included. ?? (Diabetes Care 31:2682-4763, 2007). ??The eAG is not equivalent to a fasting glucose. Testing performed by: [facility], [address] [place] [address]., [address] Blood 03/13/2024 1:23 PM CDT 03/13/2024 9:00 PM CDT Maria Negrete MD LAB BLOOD ORDERABLES Final Re sult Performing Organization Address City/State/[facility] Co de Phone Number [facility] [address] [facility] [place] [address] * (ABNORMAL) Diabetic Eye Exam (02/19/2022) Priyanka Marshall MD HEALTH MAINTENANCE Final Result * (ABNORMAL) Albumin Creatinine Ratio, Urine (10/28/2021 10:47 AM CDT) [facility] Albumin Ur 1,475.8 mg/L [facility] Comment: Interpretive Data No reference range established. Current interpretive data was last revised 2018. Creatinine Ur 185.1 mg/dL [facility] Comment: Interpretive Data No reference range established. Current interpretive data was last revised 2018. Albumin Creatinine Ratio, Ur 797(H) 1 - 29 mg/g [facility] Urine 10/28/2021 10:4 7 AM CDT 10/28/2021 5:31 PM CDT Maria Esther Padgett MD LAB URINE ORDERABLES Final R esult [facility] [address] Department [place] [address] * (ABNORMAL) Lipid panel (10/28/2021 10:47 AM [...] on 2018. Non-HDL Cholesterol 89 mg/dL [facility] Comment: Interpretive Data Ages < [...] LAB BLOOD ORDERABLES Final R esult [facility] [address] [place] [address] from Last 3 Months or Most Recently Relevant to Health Maintenance [place] [address] MEDICARE SOLUTIONS MEDICARE SOLUTIONS Advance Directives For more information, please contact: [phone] Documents on File Type Date Recorded Patient Lna Expl anation ADVANCE DIRECTIVE 01/31/2024 10:37 AM Power of Electronic Technician-Medical * LIMITED - No CPR (Latest Code [...] 1:59 AM 01/27/2024 3:04 PM Care Teams Second Language Tutor Relationship Specialty Start Date End Date Patrice Rico NP [address] [place] [address] Nurse Practitioner Internal Medicine 08/26/23 Joselin Mcbride MD [address] [place] [address] Consulting Physician Gastroenterology 01/28/24 Eryn Araya, PT Physical Therapist Physical Therapy 03/01/24
[2024-08-01 19:10] LABS: Alanine Aminotransferase 18 U/L (6-50); Albumin Level 4.2 g/dL (3.5-5.1); Alkaline Phosphatase 105 U/L (38-126); Anion Gap 11 mmol/L (4-12); Aspartate Amino Transferase 39 U/L (17-59); Bilirubin,Total 0.8 mg/dL (0.2-1.3); Blood Urea Nitrogen 24 mg/dL (9-20); Calcium 9.9 mg/dL (8.4-10.2); Carbon Dioxide 22 mmol/L (22-30); Chloride 101 mmol/L (98-107); Estimated Glomerular Filt Rate 37; Glucose 246 mg/dL (65-110); Potassium 4.5 mmol/L (3.4-5.0); Sodium 134 mmol/L (137-145)
[2024-08-01 19:51] LABS: Add Urine Microscopic? YES; Appearance Urine Clear (Clear); Bacteria Urine None Seen /hpf; Bilirubin Urine Negative (Negative); Blood Urine 2+ (Negative); Color Urine Yellow (Yellow); Glucose Urine UA 3+ mg/dL (Negative); Hyaline Casts Urine Present /lpf; Ketones Urine Trace mg/dL (Negative); Leukocyte Esterase Ur Negative LEU/UL (Negative); Need Manual Microscopic Reviewed; Nitrate Urine Negative (Negative); Protein Urine 3+ mg/dL (Negative); Specific Grav Ur 1.026 (1.001-1.035); Squamous Epithelial Cell Urine None Seen /hpf (Few); WBC Urine 0-5 /hpf (0-3); pH Urine 5.5 (5.0-9.0)
== END 2024-08-01 10:39 | disposition home or self-care (01) ==
PROVIDERS: PCP Nurse Practitioner Adult Health; Visit Provider Nurse Practitioner Adult Health
DX: R68.89 Other general symptoms and signs (principal); E11.9 Type 2 diabetes mellitus without complications
CPT/HCPCS: 36415; 80053; 81001

== ENCOUNTER 2024-12-05 13:39 | Outpatient (CLI) | payer MEDICARE, SELFPAY ==
--- OUTSIDE RECORDS SUMMARY | 2024-12-05 14:47 | XMS_ITS | Continuity of Care Document ---
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 [address] [facility], [facility] [address], [place], [place], [address], [place]. tel:[phone] [facility], [address], [place], [place], [address], tel:[phone] SEC Lennox CRUZ Professional Cataract evaluation (chief complaint) Type 2 diab with mild nonp rtnop with macular edema, l eyeAge-relat ed nuclear cataract, bilateralCor pipe scar, right eyeDrusen (degenerativ e) of macula, right eye 2 Harjit Rajan. [address] [facility], [facility] [address], [place], [place], [address], [place]. tel:[phone] Specialist: Shira Platt MD, [address] [facility] [address], [place], [address]. tel:[phone] ist: Kaylah Nix MD, [address], [place], [address]. tel:[phone] ist: Nargis Romero NP, [address] [facility] [address], [place], [address]. tel:[phone] ist: Kaylah Nix MD, [address] [facility] [address], [place], [address]. tel:[phone] Provider: Kenyatta Oneal MD, [address] [facility] [facility], [place], [address]. tel:[phone] ng Provider: MD Agus Michelle, [address] [facility], [place], [address]. tel:[phone] Office/outpa tient Visit, [facility], [address], [place], [place], [address], [place] tel:[phone] [facility] Professional Diabetic eye exam (chief complaint) Type 2 diab with mild nonp rtnop with macular edema, l eyeType 2 diab with mild nonp rtnop without mclr edema, r eyeCombined forms of age-related cataract, bilateralAna tomical narrow angle May-0 6-202 2 Timothy OD Mary Jo. [address] [facility], [address], [place], [place], [address], [place]. tel:[phone] Specialist: Shira Platt MD, [address] [facility] [address], [place], [address]. tel:[phone] ist: Kaylah Nix MD, [address] [facility] [address], [place], [address]. tel:[phone] ist: Nargis Romero NP, [address] [facility] [address], [place], [address]. tel:[phone] Provider: Kenyatta Oneal MD, [address] [facility], [place], [address]. tel:[phone] ng Provider: MD Agus Michelle, [address] [facility], [place], [address]. tel:[phone] [facility] Eye [facility], [address] [facility], [place], [place], [address], [place] tel:[phone] SEC [facility] Professional No Information 2 Harjit Rajan. [address] [facility], [address], [place], [place], [address], [place]. tel:[phone] Specialist: Shira Platt MD, [address], [place], [address]. tel:[phone] ist: Kaylah Nix MD, [address], [place], [address]. tel:[phone] ist: Nargis Romero NP, [address] [facility] [address], [place], [address]. tel:[phone] Family History Family Member Type Diagnosis Age At Onset Problem Family history of Diabetes m catalinajulia Payers Payer name Insurance type Covered libertarian ID Authoriza tion(s) [employer] Medicare CI [id number] Social History Type Description Quantity Date Captured [...] Nix treats his diab. Patient goes to [facility] for his glasses. Functional Status Date Functional Assessmen t No Information Instructions Date Instruction Additional Infor abi Impression/Plan Impression/Plan Assessments Type Assessment Date No Information Patient Care Teams Name Effective Dates (start - stop) Status Members No Information
--- OUTSIDE RECORDS SUMMARY | 2024-12-05 14:48 | XMS_ITS | CONTINUITY OF CARE DOCUMENT ---
Author Name jessikaser, jessikaser Address Unknown Organization [facility] Address [address] [facility] [address] [place] [address] Phone [phone] Care Team Providers Care Tip Fixer Name Role Phone Chuy BONILLA, Jean Pierre Unavailable [phone] KATIA BONILLA MENG Unavailable [phone] NIKO ORR MD Unavailable [phone] PROBLEMS Condition Status Date Provider Notes HYPERLIPIDEMIA active Berenice Gay RN HTN ESSENTIAL active Berenice Gay RN CAD active Berenice Gay RN DIABETES MELLITUS active Berenice Mas N CHEST PAIN-TYPE TO BE DETERMINED completed - Berenice Gay RN ENCOUNTERS Date Type Provider Location Encounter Diag nosis - In-person encounter Office Visit Jean Pierre Vera MD [facility] HYPERLIPIDEMIACHEST PAIN-TYPE TO BE DETERMINED - In-person encounter Office Visit Laina Merchant MD [facility] - In-person encounter Office Visit Jean Pierre Vera MD [facility] - In-person encounter Office Visit Jean Pierre Vera MD [facility] Office HYPERLIPIDEMIAHTN ESSENTIALCADDIABETES MELLITUS VITAL SIGNS Date Observation Value Provider Body Mass Index (Ratio) 35.42 kg/m2 Rosa Gay RN blood pressure, diastolic 70 mm[Hg] Kr isty Chandler blood pressure, systolic 132 mm[Hg] Kri sty Chandler blood pressure, resting No Buster ty Chandler blood pressure, cuff size regular Kr isty Chandler pulse rate 77 /min Jocelyn Arteaga respiratory [...] Payer name Policy type / Coverage type [place] [employer] party ID [employer] HMO Other [id number] ADVANCE DIRECTIVES Name Date DISCUSSED - NO [...] identified. Normal LVEF 58%. - [facility] (08/26/2000) C ardiac Cath: Single-vessel coronary artery [...] 1 tbalet daily O rders: E KG (CPT-48158) BP today: 165/82 P rior BP: 130/80 [...] Name Provider Procedure Notes S imelda SNOMED-CT: [id number] Current Medications Documented Jean Pierre Vera MD completed EKG Jean Pierre Vera MD completed
--- OUTSIDE RECORDS SUMMARY | 2024-12-05 14:48 | XMS_ITS | Continuity of Care Document ---
Author Organization [facility] Address [address] [place] [address] Phone Care Team Providers Care Svp Name Role Phone Se BONILLA Meng Unavailable [...] Diagnoses Date Provider Providers Copied on Encounter [facility], [address], [place], [place], [address] , [place] tel: [phone] [facility] No Information [address], [place], [address], [place]. tel:[phone] [employer], [address], [place], [place], [address] , [place] tel: [phone] [facility] No Information [address], [place], [address], [place]. [phone] [facility] [employer], [address], [place], [place], [address] , [place] tel: [phone] [facility] Rectal bleedingBlood in stoolElevated PSA [address]. [address] [place] [address], [id number], [place]. tel:[phone] Referring Provider: Emir Saez, [address] [place] [address], [address] . tel:[phone] [facility] [employer], [address], [place], [place], [address] , [place] tel: [phone] [facility] Urinary tract infectionDiabetic NeuropathyPolyneur opathy in diabetes Apr-2 4 Robert Juan. [address], [address], [place], [place], [address]. tel:[phone] Referring Provider: Emir Saez, [place], [address] . tel:[phone] [facility] [employer], [address], [place], [place], [address] , [place] tel:[phone] [facility] Diabetic Neuropathy Apr-0 4 Se Emir. [address] [place] [address] [place], [address], [place]. tel:[phone] [facility], [address], [place], [place], [address] , [place] tel: [phone] [facility] History of fall/At Risk For FallingScreening for unspecified conditionCAD, UnspecifiedDiabeti c NeuropathyOther and unspecified hyperlipidemiaBPHO besity (BMI 30.0-34.9) [address] [place] [address], [id number], [place]. tel:[phone] Referring Provider: Emir Saez [address] [place] [address], [address] . tel:[phone] [facility], Box [facility], [place], [place], [address] , [place] tel: [phone] [facility] rash (chief complaint) CAD-recent cardiac cath/stent s placed (chief complaint) Allergic dermatitisCAD (coronary artery disease)History of heart artery stent 4 Zi Natarajan. [address] [facility], [address], [place], [place], [address], [place]. tel:[phone] Referring Provider: Emir Saez, [address] [place] [address], [address] . tel:[phone] [facility], [address], [place], [place], [address] , [place] tel: [phone] [facility] BPHCAD, Unspecified 4 Berny Stevens. [address] [facility] [place] [facility], [address], [place], [place], [address], [place]. tel:[phone] [facility], [address], [place], [place], [address] , [place] tel: [phone] [facility] Polyneuropathy in diabetesDiabetic NeuropathyOther and unspecified hyperlipidemiaChes t painHTN 3 Robert Juan. [address] [facility], [address], [place], [place], [address]. tel:[phone] Referring Provider: Emir Saez [address] [place] [address], [address] . tel:[phone] [facility], [address], [place], [place], [address] , [place] tel: [phone] [facility] Pain in joint/arthralgia pelvic region and thighHypertensionN ausea 3- 3 Zi Natarajan. [address], [address], [place], [place], [address], [place]. [phone] Referring Provider: Emirtamiko Saez, [address] [place], [address] . tel:[phone] [facility], [address], [place], [place], [address] , [place] tel: [phone] [facility] Diabetes with neurological manifestations, type II or unspecified type, not stated as uncontrolledPolyne uropathy in diabetesOther and unspecified hyperlipidemiaUnsp ecified essential hypertensionBENIGN LOCALIZED HYPERPLASIA OF PROSTATE WITHOUT URINARY OBSTRUCTIONAcute right hip painNausea & vomiting 3 Zi Natarajan. [address], [address], [place], [place], [address], [place]. tel:[phone] [facility], [address], [place], [place], [address] , [place] tel: [phone] [facility] No Information [address] [place] [address], [id number], [place]. tel:[phone] [facility], [address], [place], [place], [address] , [place] tel: [phone] [facility] Diabetes with neurological manifestations, type II or unspecified type, uncontrolledPolyne uropathy in diabetesBenign essential hypertensionHYPERL IPIDEMIA NEC/NOSElevated prostate specific antigen (psa)Obesity, unspecified October- 3 Robert Yessica. [address], [address], [place], [place], [address]. tel:[phone] [facility], [address], [place], [place], [address] , [place] tel: [phone] [facility] Benign essential hypertensionBENIGN LOCALIZED HYPERPLASIA OF PROSTATE WITH URINARY OBSTRUCTIONDiabete s with neurological manifestations, type II or unspecified type, uncontrolledElevat ed prostate specific antigen (psa)Other and unspecified hyperlipidemiaPoly neuropathy in diabetes 2 No Information [facility], [address], [place], [place], [address] , [place] tel: [phone] [facility] Benign essential hypertensionBENIGN LOCALIZED HYPERPLASIA OF PROSTATE WITH URINDiverticulosis of colon (without mention of hemorrDiabetes with neurological manifestations, type IIElevated prostate specific antigen (psa)Other and unspecified hyperlipidemiaNEUR OPATHY IN DIABETES 2 No Information [facility], [address], [place], [place], [address] , [place] tel: [phone] [facility] Unspecified chest painHeadache [address] Juan[address], [address], [place], [place], [address]. tel:[phone] [facility], [address], [place], [place], [address] , [place] tel: [phone] [facility] BENIGN LOCALIZED HYPERPLASIA OF PROSTATE WITH URINARY OBSTRUCTIONDiverti culosis of colon (without mention of hemorrhage)Elevate d prostate specific antigen (psa) 1 No Information [facility], [address], [place], [place], [address] , [place] tel: [phone] [facility] BENIGN LOCALIZED HYPERPLASIA OF PROSTATE WITH URINARY OBSTRUCTIONElevate d prostate specific antigen (psa)Diverticulosi s of colon (without mention of hemorrhage) 1 No Information [facility], [address], [place], [place], [address] , [place] tel: [phone] [facility] BPH W/O URINARY OBS/LUTSELVTD PRSTATE SPCF ANTGNDMII NEURO UNCNTRLDNEUROPATHY IN DIABETES 1 No Information [facility], [address], [place], [place], [address] , [place] tel: [phone] [facility] HYPERLIPIDEMIA NEC/NOSBENIGN HYPERTENSION 1 Conversion Doctor. [address] [facility], [place], [address], [place]. [facility], [address], [place], [place], [address] , tel: [phone] [facility] JOINT PAIN-PELVIS 1 Conversion Doctor. [address] [place], [address], [place]. [facility], [address], [place], [place], [address] , tel: [phone] [facility] DMII WO CMP UNCNTRLD 0 Conversion Doctor. [address] [place], [address], [place]. [facility], [address], [place], [place], [address] , [place] tel: [phone] [facility] SCRN MALIG NEOP-PROSTATERECUR BILAT INGUIN HERNSCREEN MAL NEOP-RECTUMDVRTCLO COLON W/O HMRHGDMII WO CMP NT ST UNCNTR 0 No Information Family History Family Member Type Diagnosis Age At Onset Father Problem (finding) coronary arterioscleros is Father Problem (finding) diabetes melli tus in first degree relative Sister Problem (finding) diabetes melli tus in first degree relative Payers Payer name Insurance type Covered green party ID Authoriza tion(s) [employer] [id number] Social History Type Description Quantity Date Captured [...] had 3 stents placed. He saw his rehab manager when having extreme fatigue. States he [...]
[2024-12-05 20:18] LABS: Alanine Aminotransferase 16 U/L (6-50); Albumin Level 4.3 g/dL (3.5-5.1); Alkaline Phosphatase 90 U/L (38-126); Anion Gap 8 mmol/L (4-12); Aspartate Amino Transferase 49 U/L (17-59); Bilirubin,Total 0.5 mg/dL (0.2-1.3); Blood Urea Nitrogen 39 mg/dL (9-20); Calcium 9.1 mg/dL (8.4-10.2); Carbon Dioxide 26 mmol/L (22-30); Chloride 107 mmol/L (98-107); Cholesterol 191 mg/dL (0-200); Estimated Glomerular Filt Rate 27; Glucose 122 mg/dL (65-110); HDL Direct 39 mg/dL; Potassium 5.1 mmol/L (3.4-5.0); Sodium 141 mmol/L (137-145); Total Protein 7.9 g/dL (6.3-8.2); Triglycerides 98 mg/dL (<150)
[2024-12-05 20:27] LABS: Hemoglobin A1C 7.5 % (<5.7)
[2024-12-05 20:29] LABS: LDL Cholesterol Direct 104 mg/dL
[2024-12-05 21:03] LABS: Creatinine Urine 63.5 mg/dL
[2024-12-05 21:45] LABS: MALB Creatinine Ratio 1791.5 mg/g (0-30); Microalbumin Urine Random 1137.6 mg/L (0-16.7)
== END 2024-12-05 13:40 | disposition home or self-care (01) ==
LOC: ANHBWCLAB 13:40
PROVIDERS: PCP Nurse Practitioner Adult Health; Visit Provider Nurse Practitioner Adult Health
DX: E11.9 Type 2 diabetes mellitus without complications (principal)
CPT/HCPCS: 36415; 80053; 80061; 82043; 82565; 83036

== ENCOUNTER 2025-04-09 13:48 | Outpatient (CLI) | payer MEDICARE, SELFPAY ==
--- OUTSIDE RECORDS SUMMARY | 2013-11-10 05:30 | XMS_ITS | Continuity of Care Document ---
Author Organization [facility] Address [address] [place] [address] Phone Care Team Providers Care Cost Specialist Name Role Phone Se BONILLA Meng Unavailable Unavailable Allergies, Adverse Reactions, Alerts Substance Reaction Status Criticality IODINE Rash Active No Information No Known Drug Allergies Active No I nformation Medications Medication Instructions Dosage Effective Dates (start - stop) Status Comments pantoprazole 40 mg tablet,delayed release take 1 tablet by oral route every day 40 MG No Longer Active isosorbide mononitrate ER 30 mg tablet,extended release 24 hr take 1 tablet by oral route every day in the morning 30 MG No Longer Active simvastatin 20 mg tablet take 1 tablet by oral route every day in the evening 20 MG No Longer Active Effient 10 mg tablet take 1 tablet by oral route every day 10 MG No Longer Active lisinopril 20 mg tablet take 1 tablet (20MG) by oral route every day 20 MG No Longer Active metformin 1,000 mg tablet take 1 (1,000 mg ) tablet with morning meals, take 0.5 (500 mg) tablet with evening meals. No Longer Active aspirin 325 mg Tab, Delayed Release take 1 tablet (325MG) by oral route every day 325 MG No Longer Active Contour Test Strips test fingerstick 1-2 times a day No Longer Active Microlet Lancet test fingerstick 1-2 times a day - No Longer Active Advance Directives Directive Yes / No Effective Date File Name No Information Encounters Encounter Description Practice Location Reason(s) For Visit Diagnoses Date Provider Providers Copied on Encounter [facility], [address], [place], [place], [address] , [place] tel: [phone] [facility] No Information [address] [place], [place], [address], [place]. tel:[phone] [facility], [address], [place], [place], [address] , [place] tel: [phone] [facility] No Information [address] [place], [place], [address], [place]. [phone] [facility], [address], [place], [place], [address] , [place] tel: [phone] [facility] Rectal bleedingBlood in stoolElevated PSA [address]. [address] [place] [address], [id number], [place]. tel:[phone] Referring Provider: Emir Saez, [address] [place] [address], [address] . tel:[phone] [facility], [address], [place], [place], [address] , [place] tel: [phone] [facility] Urinary tract infectionDiabetic NeuropathyPolyneur opathy in diabetes Apr-2 4 Robert Juan. [address], [address], [place], [place], [address]. tel:[phone] Referring Provider: Emir Saez, [place], [address] . tel:[phone] [facility], [address], [place], [place], [address] , [place] tel:[phone] [facility] Diabetic Neuropathy Apr-0 4 Se Emir. [address] [place] [address] [place], [address], [place]. tel:[phone] [facility], [address], [place], [place], [address] , [place] tel: [phone] [facility] History of fall/At Risk For FallingScreening for unspecified conditionCAD, UnspecifiedDiabeti c NeuropathyOther and unspecified hyperlipidemiaBPHO besity (BMI 30.0-34.9) [address] [place] [address], [id number], [place]. tel:[phone] Referring Provider: Emir Saez [address] [place] [address], [address] . tel:[phone] [facility], [address] [facility], [place], [place], [address] , [place] tel: [phone] [facility] rash (chief complaint) CAD-recent cardiac cath/stent s placed (chief complaint) Allergic dermatitisCAD (coronary artery disease)History of heart artery stent 4 Zi Natarajan. [address] [facility], [address], [place], [place], [address], [place]. tel:[phone] Referring Provider: Emir Saez, [address] [place] [address], [address] . tel:[phone] [facility], [address], [place], [place], [address] , [place] tel: [phone] [facility] BPHCAD, Unspecified 4 Berny Stevens. [address] [facility], [address], [place], [place], [address], [place]. tel:[phone] [facility], [address], [place], [address] , [place] tel: [phone] [facility] Polyneuropathy in diabetesDiabetic NeuropathyOther and unspecified hyperlipidemiaChes t painHTN 3 Robert Juan. [address] [facility], [address], [place], [place], [address]. tel:[phone] Referring Provider: Emir Saez [address] [place] [address], [address] . tel:[phone] [facility], [address], [place], [place], [address] , [place] tel: [phone] [facility] Pain in joint/arthralgia pelvic region and thighHypertensionN ausea 3- 3 Zi Natarajan. [address], [address], [place], [place], [address], [place]. [phone] Referring Provider: Emirtamiko Saez, [address] [place], [address] . tel:[phone] [facility], [address], [place], [place], [address] , [place] tel: [phone] [facility] Diabetes with neurological manifestations, type II or unspecified type, not stated as uncontrolledPolyne uropathy in diabetesOther and unspecified hyperlipidemiaUnsp ecified essential hypertensionBENIGN LOCALIZED HYPERPLASIA OF PROSTATE WITHOUT URINARY OBSTRUCTIONAcute right hip painNausea & vomiting 3 Zi Natarajan. [address], [address], [place], [place], [address], [place]. tel:[phone] [facility], [address], [place], [place], [address] , [place] tel: [phone] [facility] No Information [address] [place] [address], [address], [place]. tel:[phone] [facility], [address], [place], [place], [address] , [place] tel: [phone] [facility] Diabetes with neurological manifestations, type II or unspecified type, uncontrolledPolyne uropathy in diabetesBenign essential hypertensionHYPERL IPIDEMIA NEC/NOSElevated prostate specific antigen (psa)Obesity, unspecified October- 3 Robert Yessica. [address], [address], [place], [place], [address]. tel:[phone] [facility], [address], [place], [place], [address] , [place] tel: [phone] [facility] Benign essential hypertensionBENIGN LOCALIZED HYPERPLASIA OF PROSTATE WITH URINARY OBSTRUCTIONDiabete s with neurological manifestations, type II or unspecified type, uncontrolledElevat ed prostate specific antigen (psa)Other and unspecified hyperlipidemiaPoly neuropathy in diabetes 2 No Information [facility], [address], [place], [place], [address] , [place] tel: [phone] [facility] Benign essential hypertensionBENIGN LOCALIZED HYPERPLASIA OF PROSTATE WITH URINDiverticulosis of colon (without mention of hemorrDiabetes with neurological manifestations, type IIElevated prostate specific antigen (psa)Other and unspecified hyperlipidemiaNEUR OPATHY IN DIABETES 2 No Information [facility], [address], [place], [place], [address] , [place] tel: [phone] [facility] Unspecified chest painHeadache [address], [address], [place], [place], [address]. tel:[phone] [facility], [address], [place], [place], [address] , [place] tel: [phone] [facility] BENIGN LOCALIZED HYPERPLASIA OF PROSTATE WITH URINARY OBSTRUCTIONDiverti culosis of colon (without mention of hemorrhage)Elevate d prostate specific antigen (psa) 1 No Information [facility], [address], [place], [place], [address] , [place] tel: [phone] [facility] BENIGN LOCALIZED HYPERPLASIA OF PROSTATE WITH URINARY OBSTRUCTIONElevate d prostate specific antigen (psa)Diverticulosi s of colon (without mention of hemorrhage) 1 No Information [facility], [address], [place], [place], [address] , [place] tel: [phone] [facility] BPH W/O URINARY OBS/LUTSELVTD [facility]STATE SPCF ANTGNDMII NEURO UNCNTRLDNEUROPATHY IN DIABETES 1 No Information [facility], [address], [place], [place], [address] , [place] tel: [phone] [facility] HYPERLIPIDEMIA NEC/NOSBENIGN HYPERTENSION 1 Conversion Doctor. [address] [facility], [place], [address], [place]. [facility], [address], [place], [place], [address] , tel: [phone] [facility] JOINT PAIN-PELVIS 1 Conversion Doctor. [address] [place], [address], [place]. [facility], [address], [place], [place], [address] , tel: [phone] [facility] DMII WO CMP UNCNTRLD 0 Conversion Doctor. [address] [place], [address], [place]. [facility], [address], [place], [place], [address] , [place] tel: [phone] [facility] SCRN MALIG NEOP-PROSTATERECUR BILAT INGUIN HERNSCREEN MAL NEOP-RECTUMDVRTCLO COLON W/O HMRHGDMII WO CMP NT ST UNCNTR 0 No Information Family History Family Member Type Diagnosis Age At Onset Father Problem (finding) coronary arterioscleros is Father Problem (finding) diabetes melli tus in first degree relative Sister Problem (finding) diabetes melli tus in first degree relative Payers Payer name Insurance type Covered alliance party ID Authoriza tion(s) [employer] [id number] Social History Type Description Quantity Date Captured Comments Sex Male Smoking Status No Information Chief Complaint And Reason For Visit No Information Reason For Referral Reason For Referral No Information History Of Present Illness Encounter Date Complaint History Of Prese nt Illness rash The patient pres ents for rash. This episode began on 06/22/2013. The symptom(s) are described as mild, unchanged and occurs only with exposure to irritating agent. Affected area(s) include groin. The patient's selfwife Beatriz describes the affected area(s) as, burning, dry, itchy and red. The symptoms are associated with recent medicines (? dye). The symptoms are not associated with new skin soaps/lotions and stress. Aggravating factors include clothing. Relieving factors include skin lubricants. Associated symptoms include erythema (skin) and pruritus. There are no other household members with similar symptoms. Relevant history negative for history of allergies, history of asthma and history of atopic dermatitis. Additional information: states he noticed when he had the dye when having a card. cath on 06/22.states initially had burning of penis/groin, went away. Has painful.itchy rash since 06/23-States he puts vaseline on it and has not had much change in it. States skin feels like.. CAD-recent cardiac c ath/stents placed He states he had cardiac cath on 06/22/13,and had 3 stents placed. He saw his banquet manager when having extreme fatigue. States he previously was 'just worn out' when going from his living room to kitchen. States he now is 'feeling great. His states 'we have to keep reminding him of things not to do. He will see Dr Vera on 07/19. Functional Status Date Functional Assessmen t No Information Instructions Date Instruction Additional Infor abi Disease process Assessments Type Assessment Date No Information Patient Care Teams Name Effective Dates (start - stop) Status Members No Information
--- OUTSIDE RECORDS SUMMARY | 2022-02-10 06:23 | XMS_ITS | Continuity of Care Document ---
Author Organization [facility] Address [address] [facility] [address] [place] [address] Phone Care Team Providers Care Wireless Architect Name Role Phone Harjit BONILLA, Satinder Unavailable Unavailable Allergies, Adverse Reactions, Alerts Substance Reaction Status Criticality No Known Allergies Active No Inform ation Medications Medication Instructions Dosage Effective Dates (start - stop) Status Comments B-12 Plus 5,000 mcg-100 mcg sublingual tablet 1 tablet by mouth once a day - Active meloxicam 15 mg tablet take 1 tablet by oral route every day 15 MG - Active venlafaxine ER 150 mg capsule,extended release 24 hr take 1 capsule by oral route every day 150 MG - Active lutein 20 mg-zeaxanthin 1,000 mcg capsule 1 tablet by mouth once a day - Active cinnamon bark 500 mg capsule - Active lisinopril 10 mg tablet take 1 tablet by oral route every day 10 MG - Active aspirin 81 mg tablet,delayed release take 1 tablet by oral route every day 81 MG - Active atorvastatin 40 mg tablet take 1 tablet by oral route every day 40 MG - Active carvedilol 12.5 mg tablet take 1 tablet by oral route 2 times every day with food 12.5 MG - Active cimetidine 400 mg tablet take 1 tablet by oral route 2 times every day in the morning and at bedtime 400 MG - Active glimepiride 2 mg tablet take 1 tablet by oral route every day 2 MG - Active hydroxyzine HCl 25 mg tablet take 1 tablet by oral route every day as needed 25 MG - Active Levemir FlexTouch U-100 Insulin 100 unit/mL (3 mL) subcutaneous pen inject by subcutaneous route per prescriber's instructions. Insulin dosing requires individualization. - Active iron 325 mg (65 mg iron) tablet take 1 tablet by oral route every day 325 MG - Active Procedures Procedure Date SCODI, Retina IOLMaster-Technical No Charge Orbscan No Charge Refraction No Charge Optomap Fundus Photos Eye Exam & Treatment No Charge Optomap Fundus Photos SCODI, Retina No Charge Refraction Office/outpatient Visit, New Advance Directives Directive Yes / No Effective Date File Name No Information Encounters Encounter Description Practice Location Reason(s) For Visit Diagnoses Date Provider Providers [facility]ied [facility], [address], [place], [place], [address], [place] tel:[phone] [facility] No Information 2 Harjit Rajan. [address] [facility] [address], [place], [place], [address], [place]. tel:[phone] [facility], [address], [place], [place], [address], tel:[phone] [facility] Cataract evaluation (chief complaint) Type 2 diab with mild nonp rtnop with macular edema, l eyeAge-relat ed nuclear cataract, bilateralCor pipe scar, right eyeDrusen (degenerativ e) of macula, right eye 2 Harjit Rajan. [address] [facility], [facility] [address], [place], [place], [address], [place]. tel:[phone] Specialist: Shira Platt MD, [address] [facility] [address], [place], [address]. tel:[phone] ist: Kaylah Nix MD, [address] [facility] [address], [address], [place], [address]. tel:[phone] ist: Nargis Romero NP, [address] [facility] [address], [place], [address]. tel:[phone] ist: Kaylah Nix MD, [address] [facility] [address], [place], [address]. tel:[phone] Provider: Kenyatta Oneal MD, [address] [facility]. [address], [place], [address]. tel:[phone] ng Provider: MD Agus Michelle, [address] [facility], [place], [address]. tel:[phone] Office/outpa tient Visit, [facility], [address] [facility], [place], [place], [address], [place] tel:[phone] [facility] Diabetic eye exam (chief complaint) Type 2 diab with mild nonp rtnop with macular edema, l eyeType 2 diab with mild nonp rtnop without mclr edema, r eyeCombined forms of age-related cataract, bilateralAna tomical narrow angle May-0 6-202 2 Timothy OD Mary Jo. [address] [facility], [address], [place], [place], [address], [place]. tel:[phone] Specialist: Shira Platt MD, [address] [facility] [address], [place], [address]. tel:[phone] ist: Kaylah Nix MD, [address] [facility] [address], [place], [address]. tel:[phone] ist: Nargis Romero NP, [address] [facility] [address], [place], [address]. tel:[phone] Provider: Kenyatta Oneal MD, [address] [facility], [place], [address]. tel:[phone] ng Provider: MD Agus Michelle, [address] [facility], [place], [address]. tel:[phone] [facility], [address] [facility], [place], [place], [address], [place] tel:[phone] [facility] No Information 2 Harjit Rajan. [address] [facility], [address], [place], [place], [address], [place]. tel:[phone] Specialist: Shira Platt MD, [address] [facility], [place], [address]. tel:[phone] ist: Kaylah Nix MD, [address] [facility], [place], [address]. tel:[phone] ist: Nargis Romero NP, [address] [facility] [address], [place], [address]. tel:[phone] Family History Family Member Type Diagnosis Age At Onset Problem Family history of Diabetes m catalinajulia Payers Payer name Insurance type Covered libertarian ID Authoriza tion(s) [employer] Medicare CI [id number] Social History Type Description Quantity Date Captured Comments Alcohol Use Details Unknown Caffeine Use Details Unknown Tobacco Use Status No Information Smoking Status No Information Sex Male Chief Complaint And Reason For Visit No Information Reason For Referral Reason For Referral No Information Plan Of Treatment Date Type Action Status Goal Tobacco cessation counseling completed Patient Education Cataracts: Care Instruc tions completed Patient Education Diabetic Retinopathy: C are Instructions completed History Of Present Illness Encounter Date Complaint History Of Prese nt Illness Cataract evaluation The 82 year old patient presents for evaluation of Cataract evaluation in the right eye and left eye. Patient has hx of mac edema OS. Patient is a Type II diabetic and had exam for that here in October. Dr. Nix treats DM. Patient is having a hard time reading small print. Patient has a hard time watching TV and having a hard time seeing the street lights changes from red to green. Diabetic eye exam The 81 year ol d patient presents for evaluation of Diabetic eye exam in the right eye and left eye. Patient states he has more trouble reading. Patient is a Type 2 diab 10 plus years, Insulin dependant x 3 years, BS checked last night at 210, a1c between 8-9, and Dr. Nix treats his diab. Patient goes to [place] for his glasses. Functional Status Date Functional Assessmen t No Information Instructions Date Instruction Additional Infor abi Impression/Plan Impression/Plan Assessments Type Assessment Date No Information Patient Care Teams Name Effective Dates (start - stop) Status Members No Information
[2025-04-09 19:02] LABS: Hematocrit 37.0 % (42.0-52.0); Hemoglobin 11.3 g/dL (14.0-18.0); Mean Corpuscular HGB Conc 30.5 g/dl (32-36); Mean Corpuscular Hemoglobin 28.0 pg (26-34); Mean Corpuscular Volume 91.6 fl (80-100); Platelet Count Result 239 k/mm3 (150-375); Red Blood Count 4.04 M/mm3 (4.6-6.20); White Blood Count 10.4 K/mm3 (4.5-10.0)
[2025-04-09 19:30] LABS: Alanine Aminotransferase 14 U/L (6-50); Albumin Level 4.2 g/dL (3.5-5.1); Alkaline Phosphatase 88 U/L (38-126); Anion Gap 11 mmol/L (4-12); Aspartate Amino Transferase 29 U/L (17-59); Bilirubin,Total 0.4 mg/dL (0.2-1.3); Blood Urea Nitrogen 40 mg/dL (9-20); Calcium 9.0 mg/dL (8.4-10.2); Carbon Dioxide 22 mmol/L (22-30); Chloride 104 mmol/L (98-107); Cholesterol 187 mg/dL (0-200); Estimated Glomerular Filt Rate 32; Glucose 140 mg/dL (65-110); HDL Direct 32 mg/dL; Potassium 4.6 mmol/L (3.4-5.0); Sodium 137 mmol/L (137-145); Total Protein 7.8 g/dL (6.3-8.2); Triglycerides 191 mg/dL (<150)
[2025-04-09 19:47] LABS: Hemoglobin A1C 6.7 % (<5.7)
[2025-04-09 20:07] LABS: Prostate Specific Antigen 79.0 ng/mL (< OR = 4.0)
[2025-04-09 21:15] LABS: MALB Creatinine Ratio 1140.2 mg/g (0-30)
== END 2025-04-09 13:49 | disposition home or self-care (01) ==
LOC: ANHBWCLAB 13:48
PROVIDERS: PCP Nurse Practitioner Adult Health; Visit Provider Nurse Practitioner Adult Health
DX: E11.9 Type 2 diabetes mellitus without complications (principal); Z12.5 Encounter for screening for malignant neoplasm of prostate; I10 Essential (primary) hypertension; D64.9 Anemia, unspecified
CPT/HCPCS: 36415; 80053; 80061; 82043; 82565; 83036; 84153; 85027; G0103